=== PATIENT | female | born 1985 | race Caucasian/White ===

== ENCOUNTER 2017-06-07 21:41 | Emergency (ER) | payer OTHER ==
[~2017-06-07] VITALS: Ht 167.6 cm; Wt 88.5 kg
[2017-06-07] MEDS ORDERED: 0.9 % SODIUM CHLORIDE 10 ML DISP.SYRIN. IV PRN (22:30)
[2017-06-07] MEDS ORDERED: IV NORMAL SALINE 1,000ML 1,000 ML IV SCH (22:45)
[2017-06-07] MEDS ORDERED: ONDANSETRON PF 4 MG/2 ML VIAL. IV ONE (22:45)
[2017-06-07 22:51] LABS: BASO # 0.1 x10^3/uL (0.0-0.2); BASO % 1 % (0-3); EOS # 0.1 x10^3/uL (0.0-0.7); EOS % 1 % (0-3); HEMATOCRIT 35.9 % (36.0-47.0); HEMOGLOBIN 12.1 g/dL (12.0-15.5); LYMPH # 3.4 x10^3/uL (1.0-4.8); LYMPH % 40 % (24-48); MEAN CORPUSCULAR HEMOGLOBIN 31 pg (25-35); MEAN CORPUSCULAR HGB CONC 34 g/dL (31-37); MEAN CORPUSCULAR VOLUME 93 fL (79-100); MONO # 0.7 x10^3/uL (0.0-1.1); MONO % 8 % (0-9); NEUT # 4.5 x10^3uL (1.8-7.7); NEUT % 51 % (31-73); PLATELET COUNT 261 x10^3/uL (140-400); RED BLOOD COUNT 3.87 x10^6/uL (3.50-5.40); RED CELL DISTRIBUTION WIDTH 13.9 % (11.5-14.5); WHITE BLOOD COUNT 8.7 x10^3/uL (4.0-11.0)
[2017-06-07] MEDS ORDERED: KETOROLAC 30 MG/ML VIAL. IV ONE (23:00)
[2017-06-07 23:03] LABS: BILIRUBIN,URINE NEG (NEG); CLARITY,URINE CLEAR; COLOR,URINE STRAW; GLUCOSE,URINE NEG (NEG)
[2017-06-07 23:04] LABS: BACTERIA,URINE 0 /HPF (0-FEW); NITRITE,URINE NEG (NEG); RBC,URINE OCC /HPF (0-2); SQUAMOUS EPITHELIAL CELL,UR OCC /LPF; UROBILINOGEN,URINE 0.2 mg/dL (0.2 mg/dL); WBC,URINE OCC /HPF (0-4)
[2017-06-07 23:27] LABS: ALBUMIN 3.9 g/dL (3.4-5.0); ALBUMIN/GLOBULIN RATIO 1.1 (1.0-1.7); CALCIUM 9.1 mg/dL (8.5-10.1); CREATININE 0.9 mg/dL (0.6-1.0); GFR 73.5; POTASSIUM 3.9 mmol/L (3.5-5.1); TOTAL BILIRUBIN 0.2 mg/dL (0.2-1.0); TOTAL PROTEIN 7.5 g/dL (6.4-8.2)
--- NOTE | 2017-06-07 23:44 | RAD ---
INDICATION: Bilateral flank pain, LLQ abdominal pain
no history of kidney stones in the past
Hx of cholecystectomy, appendectomy and fallopian tubes removed COMPARISON: None. TECHNIQUE: Axial CT images were obtained through the abdomen and pelvis with intravenous contrast. One or more of the following individualized dose reduction techniques were utilized for this examination: 1. Automated exposure control; 2. Adjustment of the mA and/or kV according to patient size; 3. Use of iterative reconstruction technique. FINDINGS: Chest Base: Partially imaged without gross abnormality. Vessels: No abdominal aortic aneurysm. Liver/Biliary: Low-attenuation. Postcholecystectomy. Pancreas: No peripancreatic edema. Spleen: Normal. Kidneys/Adrenal: No hydronephrosis. Bladder: No definite adjacent inflammation. GI: No free air. No bowel dilation to suggest obstruction. 40 x 45 mm left adnexal cystic lesion. There are some laxity to the anterior abdominal wall near umbilicus. Sclerotic lesion right pelvis. Most commonly bone island unless the patient has history of neoplasm. IMPRESSION: 1. No hydronephrosis or radiopaque obstructive ureter stone. 2. Left adnexal cystic lesion. If further clarification is desired ultrasound could further evaluate. 3. Low attenuation of the liver. Nonspecific but frequently secondary to fatty infiltration. Electronically signed by: Rao Marie MD (06/07/2017 11:40 PM) [facility]
[2017-06-08] MEDS ORDERED: ORPHENADRINE CITRATE 60 MG/2 ML VIAL. IM ONE (00:15)
[2017-06-08] MEDS ORDERED: ORPHENADRINE CITRATE 60 MG/2 ML VIAL. IV ONE (00:15)
[2017-06-08] MEDS ORDERED: CYCL-331 PO (00:16)
[2017-06-08] MEDS ORDERED: TRAM-48 PO (00:16)
--- NOTE | 2017-06-08 00:16 | PHYS DOC ---
Past History Past Medical History: No Pertinent History Past Surgical History: Appendectomy, Cholecystectomy, Tubal ligation Smoking: Non-smoker Adult General Chief Complaint Chief Complaint: ABDOMINAL PAIN HPI HPI 31-year-old female patient complaining of bilateral flank pain as a constant sharp pain with radiation to bilateral lower abdomen that started today and gradually getting worse. Patient rated the pain 7/10 and states the pain getting worse with urination and movement. Patient complaining of dysuria and nausea without vomiting, fever and chills, diarrhea and constipation, vaginal bleeding or discharge. Patient denies history of kidney stone. She states her LMP was 7 days ago. Review of Systems Review of Systems Constitutional: Denies fever or chills [] Eyes: Denies change in visual acuity, redness, or eye pain [] HENT: Denies nasal congestion or sore throat [] Respiratory: Denies cough or shortness of breath [] Cardiovascular: No additional information not addressed in HPI [] GI: Reports abdominal pain, nausea, denies vomiting, bloody stools or diarrhea [ ] : reports dysuria and flank pain, denies hematuria [] Musculoskeletal: Reports back pain, denies joint pain [] Integument: Denies rash or skin lesions [] Neurologic: Denies headache, focal weakness or sensory changes [] Endocrine: Denies polyuria or polydipsia [] All other systems were reviewed and found to be within normal limits, except as documented in this note. Current Medications Current Medications Current Medications Medications (Trade) Dose Ordered Sig/Yehuda Start Time Stop Time Status Last Admin Dose Admin Ketorolac Tromethamine (Toradol) 30 mg 1X ONCE 06/07/17 23:00 06/07/17 23:01 DC 06/07/17 22:57 30 MG Ondansetron HCl (Zofran) 4 mg 1X ONCE 06/07/17 22:45 06/07/17 22:46 DC 06/07/17 22:57 4 MG Orphenadrine Citrate (Norflex) 60 mg 1X ONCE 06/08/17 00:15 06/08/17 00:16 UNV Sodium Chloride (Normal Saline Flush) 10 ml QSHIFT PRN 06/07/17 22:30 Allergies Allergies Allergies Coded Allergies Type Severity Reaction Last Updated Verified Penicillins Allergy Unknown 06/07/17 Yes Sulfa (Sulfonamide Antibiotics) Allergy Unknown 06/07/17 Yes diphenhydramine Allergy Unknown 06/07/17 Yes Physical Exam Physical Exam Constitutional: Well nourished, mild distress, non-toxic appearance, anxious. [ ] HENT: Normocephalic, atraumatic, bilateral external ears normal, oropharynx moist, no oral exudates, nose normal. [] Eyes: PERRLA, EOMI, conjunctiva normal, no discharge. [] Neck: Normal range of motion, no tenderness, supple, no stridor. [] Cardiovascular:Heart rate regular rhythm, no murmur [] Lungs & Thorax: Bilateral breath sounds clear to auscultation [] Abdomen: Bowel sounds normal, soft, no tenderness, no masses, no pulsatile masses suprapubic guarding. [] Skin: Warm, dry, no erythema, no rash. [] Back: No tenderness, no CVA tenderness, paraspinal muscle spasm. [] Extremities: No tenderness, no cyanosis, no clubbing, ROM intact, no edema. [] Neurologic: Alert and oriented X 3, normal motor function, normal sensory function, no focal deficits noted. [] Current Patient Data Lab Results Laboratory Tests Test 06/07/17 22:00 06/07/17 22:22 06/07/17 22:29 Urine Collection Type Unknown Urine Color Straw Urine Clarity Clear Urine pH 5.5 Urine Specific [place] 1.010 Urine Protein Neg (NEG-TRACE) Urine Glucose (UA) Neg mg/dL (NEG) Urine Ketones (Stick) Neg mg/dL (NEG) Urine Blood Small (NEG) Urine Nitrite Neg (NEG) Urine Bilirubin Neg (NEG) Urine Urobilinogen Dipstick 0.2 mg/dL (0.2 mg/dL) Urine Leukocyte Esterase Neg (NEG) Urine RBC Occ /HPF (0-2) Urine WBC Occ /HPF (0-4) Urine Squamous Epithelial Cells Occ /LPF Urine Bacteria 0 /HPF (0-FEW) White Blood Count 8.7 x10^3/uL (4.0-11.0) Red Blood Count 3.87 x10^6/uL (3.50-5.40) Hemoglobin 12.1 g/dL (12.0-15.5) Hematocrit 35.9 % (36.0-47.0) L Mean Corpuscular Volume 93 fL (79-100) Mean Corpuscular Hemoglobin 31 pg (25-35) Mean Corpuscular Hemoglobin Concent 34 g/dL (31-37) Red Cell Distribution Width 13.9 % (11.5-14.5) Platelet Count 261 x10^3/uL (140-400) Neutrophils (%) (Auto) 51 % (31-73) Lymphocytes (%) (Auto) 40 % (24-48) Monocytes (%) (Auto) 8 % (0-9) Eosinophils (%) (Auto) 1 % (0-3) Basophils (%) (Auto) 1 % (0-3) Neutrophils # (Auto) 4.5 x10^3uL (1.8-7.7) Lymphocytes # (Auto) 3.4 x10^3/uL (1.0-4.8) Monocytes # (Auto) 0.7 x10^3/uL (0.0-1.1) Eosinophils # (Auto) 0.1 x10^3/uL (0.0-0.7) Basophils # (Auto) 0.1 x10^3/uL (0.0-0.2) Sodium Level 142 mmol/L (136-145) Potassium Level 3.9 mmol/L (3.5-5.1) Chloride Level 104 mmol/L (98-107) Carbon Dioxide Level 27 mmol/L (21-32) Anion Gap 11 (6-14) Blood Urea Nitrogen 15 mg/dL (7-20) Creatinine 0.9 mg/dL (0.6-1.0) Estimated GFR (Cockcroft-Gault) 73.5 BUN/Creatinine Ratio 17 (6-20) Glucose Level 88 mg/dL (70-99) Calcium Level 9.1 mg/dL (8.5-10.1) Total Bilirubin 0.2 mg/dL (0.2-1.0) Aspartate Amino Transferase (AST) 37 U/L (15-37) Alanine Aminotransferase (ALT) 68 U/L (14-59) H Alkaline Phosphatase 68 U/L (46-116) Total Protein 7.5 g/dL (6.4-8.2) Albumin 3.9 g/dL (3.4-5.0) Albumin/Globulin Ratio 1.1 (1.0-1.7) Lipase 134 U/L (73-393) POC Urine HCG, Qualitative hcg negative (Negative) EKG EKG [] Radiology/Procedures Radiology/Procedures [] Course & Med Decision Making Course & Med Decision Making Pertinent Labs and Imaging studies reviewed. (See chart for details) Evaluation of patient in ER showed 31-year-old male patient with complaining of bilateral flank pain with radiation to lower abdomen and nausea. Patient had unremarkable physical exam except for lumbar spasm. Labs was unremarkable. CT abdomen and pelvis did not show acute finding except for accidental left ovarian cyst.] Patient felt better with treatment in ER. Patient psychiatric to follow-up with her [employer] regarding ovarian cyst and apply ice on her back. discharge: I've spoken with the patient and/or caregivers. I've explained the patient's condition, diagnosis and treatment plan based on information available to me at this time. I've answered the patient's and/or caregivers questions and addressed any concerns. The patient and/or caregivers have a good understanding the patient's diagnosis, condition and treatment plan as can be expected at this point. Vital signs have been stabilized. The patient's condition is stable for discharge from the emergency department. The patient will pursue further outpatient evaluation with her primary care provider or other designated consulting physician as outlined in the discharge instructions. Patient and/or caregivers are agreeable to this plan of care and follow-up instructions have been explained in detail. The patient and/or caregivers have received these instructions in written format and expressed understanding of these discharge instructions. The patient and her caregivers are aware that if any significant change in condition or worsening of symptoms should prompt him to immediately return to this of the closest emergency department. If an emergent department is not readily available I would encourage him to call 911. Nohelia Disclaimer Asiyaon Disclaimer This electronic medical record was generated, in whole or in part, using a voice recognition dictation system. Departure Departure: Impression: Primary Impression: Flank pain Additional Impressions: Muscle strain Ovarian cyst Disposition: HOME, SELF-CARE (At 0020) Condition: IMPROVED Referrals: KESHIA QUARLES DO (PCP) Patient Instructions: Flank Pain, Muscle Strain, Ovarian Cyst Additional Instructions: Drink plenty of liquids Follow-up with your primary care physician in 3-5 days Return to ER if not getting better Scripts Cyclobenzaprine Hcl (CYCLOBENZAPRINE HCL) 10 Mg Tablet 1 TAB PO TID, #21 TAB Prov: NICOLE BARBOSA MD 06/08/17 Tramadol Hcl (ULTRAM) 50 Mg Tablet 50 MG PO PRN Q6HRS Y for PAIN, #14 TAB Prov: NICOLE BARBOSA MD 06/08/17 Problem Qualifiers NICOLE BARBOSA MD Jun 08, 2017 00:16
[2017-06-08 00:45] VITALS: BP 130/88
== END 2017-06-08 00:45 | disposition home or self-care (01) ==
LOC: ER 21:41
DX: N83.202 Unspecified ovarian cyst, left side (principal); S39.012A Strain of muscle, fascia and tendon of lower back, initial encounter; Z90.49 Acquired absence of other specified parts of digestive tract; Z98.51 Tubal ligation status; Z88.0 Allergy status to penicillin; Z88.2 Allergy status to sulfonamides; Z88.8 Allergy status to other drugs, medicaments and biological substances; X58.XXXA Exposure to other specified factors, initial encounter; Y93.89 Activity, other specified; Y99.8 Other external cause status; Y92.89 Other specified places as the place of occurrence of the external cause
CPT/HCPCS: 36415; 74176; 80053; 81001; 81025; 83690; 85025; 96361; 96374; 96375; 99285; J1885; J2360; J2405; J7030

== ENCOUNTER 2017-06-11 22:35 | Emergency (ER) | payer OTHER ==
[~2017-06-11] VITALS: Ht 167.6 cm; Wt 88.5 kg
[~2017-06-11 22:35] MED LIST: CYCL-331 PO; TRAM-48 PO
--- NOTE | 2017-06-11 22:47 | PHYS DOC ---
Past History Past Medical History: No Pertinent History Past Surgical History: Appendectomy, Cholecystectomy, Tubal ligation Smoking: Non-smoker Alcohol Use: Occasionally Drug Use: None Adult General Chief Complaint Chief Complaint: ABDOMINAL PAIN HPI HPI Patient is a 31 year old female who presents with gastric pain goes into her back. She states it started Tuesday she has CT scan blood work and was given home with tramadol and Flexeril. She states is really hasn't helped. She ate 2 fig newtons and some eggs and her pain returns severely tonight. She states if she turns it makes the pain worse. She denies any fevers chills or diarrhea. She states the pain is in epigastric area. She states she's had a hysterectomy, cholecystectomy and her tubes tied. Review of Systems Review of Systems Constitutional: Denies fever or chills [] Eyes: Denies change in visual acuity, redness, or eye pain [] HENT: Denies nasal congestion or sore throat [] Respiratory: Denies cough or shortness of breath [] Cardiovascular: No additional information not addressed in HPI [] GI: Positive for abdominal pain, Deniesnausea, vomiting, bloody stools or diarrhea [] : Denies dysuria or hematuria [] Musculoskeletal: Denies back pain or joint pain [] Integument: Denies rash or skin lesions [] Neurologic: Denies headache, focal weakness or sensory changes [] Endocrine: Denies polyuria or polydipsia [] All other systems were reviewed and found to be within normal limits, except as documented in this note. Allergies Allergies Allergies Coded Allergies Type Severity Reaction Last Updated Verified Penicillins Allergy Unknown 06/07/17 Yes Sulfa (Sulfonamide Antibiotics) Allergy Unknown 06/07/17 Yes diphenhydramine Allergy Unknown 06/07/17 Yes strawberry Allergy Unknown 06/11/17 Yes Physical Exam Physical Exam Constitutional: Well developed, well nourished, no acute distress, non-toxic appearance. [] HENT: Normocephalic, atraumatic, bilateral external ears normal, oropharynx moist, no oral exudates, nose normal. [] Eyes: PERRLA, EOMI, conjunctiva normal, no discharge. [] Neck: Normal range of motion, no tenderness, supple, no stridor. [] Cardiovascular:Heart rate regular rhythm, no murmur [] Lungs & Thorax: Bilateral breath sounds clear to auscultation [] Abdomen: Bowel sounds normal, soft, tender palpation in the epigastric area, no masses, no pulsatile masses. [] Skin: Warm, dry, no erythema, no rash. [] Back: No tenderness, no CVA tenderness. [] Extremities: No tenderness, no cyanosis, no clubbing, ROM intact, no edema. [] Neurologic: Alert and oriented X 3, normal motor function, normal sensory function, no focal deficits noted. [] Psychologic: Affect normal, judgement normal, mood normal. [] EKG EKG EKG shows sinus rhythm with rate of 90 bpm without any concerning ST elevations , T-wave inversions noted in lead 3, normal axis, QTC 430 ms, as interpreted by me. Radiology/Procedures Radiology/Procedures : 1985 LOCATION: ER AGE: 31 SEX: F EXAM STATUS: REG ER ORD. PHYSICIAN: ALEX DUARTE MD REASON: abd pain to back PROCEDURE: CT ANGIO CHEST ABD PELVIS CTA of the chest, abdomen and pelvis with contrast 06/12/2017 CLINICAL HISTORY: Abdominal pain radiating to back. TECHNIQUE: After the intravenous administration of 75 cc of Omnipaque 300, contiguous, 0.625 mm axial sections were obtained through the chest, abdomen and pelvis. Multiplanar 3D MIP and volume rendered 3D reconstructed images were obtained. One or more of the following individualized dose reduction techniques were utilized for this study: 1. Automated exposure control. 2. Adjustment of the mA and/or kV according to patient size. 3. Use of iterative reconstruction technique. FINDINGS: The thoracic aorta tapers normally. No aneurysm or dissection is seen. The right subclavian artery originates as the last branch of the thoracic aortic arch. This is a normal variation. This origin is patent. The origin of the right common carotid artery, left common carotid artery and left subclavian arteries are patent. The left vertebral artery originates as a separate branch from the thoracic aortic arch between the origin of the left common carotid and left subclavian arteries. This is a normal variation. This origin is patent. The heart is normal in size. No filling defect is seen involving the visualized portions of either pulmonary artery. No acute pulmonary infiltrate is seen. No pleural effusion or pneumothorax is noted. The liver has a decreased attenuation consistent with mild fatty degeneration. The spleen, pancreas, adrenal glands and kidneys are within normal limits. Surgical clips are seen within the gallbladder fossa consistent with a cholecystectomy. No free fluid or free air is within the abdomen. There is no evidence of bowel obstruction. Air and stool is seen throughout the colon. Surgical clips are seen posterior to the cecum consistent with an appendectomy. Images through the pelvis demonstrate the urinary bladder distended with urine. A 3.8 cm rounded low-attenuation lesion is seen in the left adnexa. This likely represents a left ovarian cyst. No free fluid is seen. The abdominal aorta tapers normally. The origins of the celiac trunk, superior mesenteric artery, inferior mesenteric artery are within normal limits. 2 renal arteries are seen supplying the right kidney. There are patent. Solitary left renal artery is seen which immediately bifurcates past its origin. This is patent. The common iliac arteries and their branches are patent. No area of stenosis or occlusion is seen. Minimal S-shaped curvature of the thoracolumbar spine is seen. IMPRESSION: 1. No CT evidence of aortic dissection or aneurysm. 2. 3.8 cm probable left ovarian cyst. Electronically signed by: Paulino Duarte MD (06/12/2017 2:41 AM) [facility] DICTATED AND SIGNED BY: PAULINO DUARTE MD DATE: 06/12/17 023 CC: ALEX DUARTE MD; KESHIA QUARLES DO ~ Impressions: Abdominal pain Course & Med Decision Making Course & Med Decision Making Pertinent Labs and Imaging studies reviewed. (See chart for details) Labs do not show any acute abnormality's. She's received multiple doses of morphine to get her pain control. She's had her gallbladder and appendix removed in the past. CT angiogram chest abdomen pelvis does not show any acute abnormalities. Patient's record admission for pain control. I spoke to Dr. Smalls who feels that [facility] is better for the patient since they have GI specialist. We'll admit to [facility] since they have GI specialist. Patient is agreeable to the plan and being transferred to [facility] this time. It is speak with the hospitalist, Dr. Yeboah, regarding the patient's physical exam labs and CT scan findings. Dragon Disclaimer Dragon Disclaimer This electronic medical record was generated, in whole or in part, using a voice recognition dictation system. Departure Departure: Impression: Primary Impression: Abdominal pain Disposition: 05 XFER OTHER Condition: STABLE Referrals: KESHIA QUARLES DO (PCP) Problem Qualifiers Primary Impression: Abdominal pain Abdominal location: epigastric Qualified Codes: R10.13 - Epigastric pain ALEX DUARTE MD Jun 11, 2017 22:47
--- NOTE | 2017-06-11 23:10 | EKG ---
[address] [address] Test Date: 2017-06-11 Test Time: 23:07:06 Pat Name: JOSE JAMES Department: Room: Gender: F Hook Up Driver: PATRICK : 1985 Requested By: ALEX DUARTE Order Number: [id number] Reading MD: Elton Hercules Measurements Intervals [place] Rate: 90 P: 38 WV: 136 QRS: 18 QRSD: 72 T: 24 QT: 348 QTc: 430 Interpretive Statements SINUS RHYTHM NONSPECIFIC ST-T WAVE CHANGES. RI6.01 No previous ECG available for comparison Electronically Signed On 06-20-2017 10:42:17 ROOF FIXER by Elton Hercules
[2017-06-11] MEDS ORDERED: IV NORMAL SALINE 1,000ML 1,000 ML IV SCH (23:30)
[2017-06-11] MEDS ORDERED: LIDO:MAALOX 1:1 20 ML SINGLE DOSE PO ONE (23:30)
[2017-06-11] MEDS: MORPHINE SULFATE 2 MG/ML DISP.SYRIN. IV/SQ PRN (23:47)
[2017-06-11 23:59] LABS: BASO # 0.1 x10^3/uL (0.0-0.2); BASO % 1 % (0-3); EOS # 0.1 x10^3/uL (0.0-0.7); EOS % 1 % (0-3); HEMATOCRIT 37.6 % (36.0-47.0); HEMOGLOBIN 12.8 g/dL (12.0-15.5); LYMPH # 2.6 x10^3/uL (1.0-4.8); LYMPH % 40 % (24-48); MEAN CORPUSCULAR HEMOGLOBIN 32 pg (25-35); MEAN CORPUSCULAR HGB CONC 34 g/dL (31-37); MEAN CORPUSCULAR VOLUME 93 fL (79-100); MONO # 0.5 x10^3/uL (0.0-1.1); MONO % 9 % (0-9); NEUT # 3.1 x10^3uL (1.8-7.7); NEUT % 49 % (31-73); PLATELET COUNT 252 x10^3/uL (140-400); RED BLOOD COUNT 4.04 x10^6/uL (3.50-5.40); RED CELL DISTRIBUTION WIDTH 14.3 % (11.5-14.5); WHITE BLOOD COUNT 6.4 x10^3/uL (4.0-11.0)
[2017-06-12 00:17] LABS: BILIRUBIN,URINE NEG (NEG); CLARITY,URINE HAZY; COLOR,URINE YELLOW; GLUCOSE,URINE NEG (NEG)
[2017-06-12 00:18] LABS: BACTERIA,URINE FEW /HPF (0-FEW); NITRITE,URINE NEG (NEG); RBC,URINE RARE /HPF (0-2); SQUAMOUS EPITHELIAL CELL,UR MOD /LPF; UROBILINOGEN,URINE 0.2 mg/dL (0.2 mg/dL); WBC,URINE OCC /HPF (0-4)
[2017-06-12 00:21] LABS: BARBITURATES NEG (NEG); BENZODIAZEPINES NEG (NEG); CANNABINOIDS NEG (NEG); COCAINE NEG (NEG); METHADONE NEG (NEG); OPIATES NEG (NEG); PHENCYCLIDINE NEG (NEG)
[2017-06-12 00:23] LABS: AMPHETAMINE/METHAMPHETAMINE NEG (NEG)
[2017-06-12] MEDS ORDERED: CONTRAST GIVEN MC PRN (00:30)
[2017-06-12] MEDS ORDERED: IOHEXOL 300 MG/ML 75 ML VIAL. IV ONE (00:45)
[2017-06-12] MEDS: MORPHINE SULFATE 2 MG/ML DISP.SYRIN. IV/SQ PRN ×3 (01:10→04:26)
[2017-06-12 02:09] LABS: ALBUMIN 3.3 g/dL (3.4-5.0); ALK PHOS 63 U/L (46-116); ALT (SGPT) 67 U/L (14-59); ANION GAP 10 (6-14); AST (SGOT) 43 U/L (15-37); BLOOD UREA NITROGEN 12 mg/dL (7-20); CALCIUM 8.2 mg/dL (8.5-10.1); CARBON DIOXIDE 26 mmol/L (21-32); CHLORIDE 106 mmol/L (98-107); CREATINE KINASE 74 U/L (26-192); CREATININE 0.7 mg/dL (0.6-1.0); DIRECT BILIRUBIN 0.1 mg/dL (0.0-0.2); GFR 98.3; GLUCOSE 104 mg/dL (70-99); LIPASE 64 U/L (73-393); POTASSIUM 3.7 mmol/L (3.5-5.1); SODIUM 142 mmol/L (136-145); TOTAL BILIRUBIN 0.4 mg/dL (0.2-1.0); TOTAL PROTEIN 6.7 g/dL (6.4-8.2)
--- NOTE | 2017-06-12 02:45 | RAD ---
CTA of the chest, abdomen and pelvis with contrast 06/12/2017 CLINICAL HISTORY: Abdominal pain radiating to back. TECHNIQUE: After the intravenous administration of 75 cc of Omnipaque 300, contiguous, 0.625 mm axial sections were obtained through the chest, abdomen and pelvis. Multiplanar 3D MIP and volume rendered 3D reconstructed images were obtained. One or more of the following individualized dose reduction techniques were utilized for this study: 1. Automated exposure control. 2. Adjustment of the mA and/or kV according to patient size. 3. Use of iterative reconstruction technique. FINDINGS: The thoracic aorta tapers normally. No aneurysm or dissection is seen. The right subclavian artery originates as the last branch of the thoracic aortic arch. This is a normal variation. This origin is patent. The origin of the right common carotid artery, left common carotid artery and left subclavian arteries are patent. The left vertebral artery originates as a separate branch from the thoracic aortic arch between the origin of the left common carotid and left subclavian arteries. This is a normal variation. This origin is patent. The heart is normal in size. No filling defect is seen involving the visualized portions of either pulmonary artery. No acute pulmonary infiltrate is seen. No pleural effusion or pneumothorax is noted. The liver has a decreased attenuation consistent with mild fatty degeneration. The spleen, pancreas, adrenal glands and kidneys are within normal limits. Surgical clips are seen within the gallbladder fossa consistent with a cholecystectomy. No free fluid or free air is within the abdomen. There is no evidence of bowel obstruction. Air and stool is seen throughout the colon. Surgical clips are seen posterior to the cecum consistent with an appendectomy. Images through the pelvis demonstrate the urinary bladder distended with urine. A 3.8 cm rounded low-attenuation lesion is seen in the left adnexa. This likely represents a left ovarian cyst. No free fluid is seen. The abdominal aorta tapers normally. The origins of the celiac trunk, superior mesenteric artery, inferior mesenteric artery are within normal limits. 2 renal arteries are seen supplying the right kidney. There are patent. Solitary left renal artery is seen which immediately bifurcates past its origin. This is patent. The common iliac arteries and their branches are patent. No area of stenosis or occlusion is seen. Minimal S-shaped curvature of the thoracolumbar spine is seen. IMPRESSION: 1. No CT evidence of aortic dissection or aneurysm. 2. 3.8 cm probable left ovarian cyst. Electronically signed by: Paulino Duarte MD (06/12/2017 2:41 AM) [facility]
[2017-06-12 03:45] VITALS: BP 112/65
== END 2017-06-12 04:30 | disposition short-term general hospital (02) ==
LOC: ER 22:35
DX: R10.13 Epigastric pain (principal); Z90.49 Acquired absence of other specified parts of digestive tract; Z98.51 Tubal ligation status; Z88.0 Allergy status to penicillin; Z88.2 Allergy status to sulfonamides; Z91.018 Allergy to other foods; Z88.8 Allergy status to other drugs, medicaments and biological substances
CPT/HCPCS: 36415; 71275; 74174; 80048; 80076; 80307; 81001; 82553; 83605; 83690; 83735; 83880; 84484; 85025; 85610; 85730; 93005; 96361; 96374; 96376; 99285; J2270; Q9967; 96360; G0479; J7030

== ENCOUNTER 2017-07-05 06:21 | Emergency (ER) | payer OTHER ==
[~2017-07-05] VITALS: Ht 167.6 cm; Wt 86.5 kg
[2017-07-05] MEDS ORDERED: prilosec (06:39)
[2017-07-05] MEDS ORDERED: levothyroxine (06:39)
[2017-07-05] MEDS ORDERED: 0.9 % SODIUM CHLORIDE 10 ML DISP.SYRIN. IV PRN (07:00)
[2017-07-05] MEDS: IPRATRPIUM/ALBUTEROL 0.5/2.5MG 3 ML NEBU. NEB ONE (07:22)
[2017-07-05] MEDS: IV NORMAL SALINE 1,000ML 1,000 ML IV SCH (07:39)
[2017-07-05] MEDS: METOCLOPRAMIDE HCL 10 MG/2 ML VIAL. IV ONE (07:39)
[2017-07-05 07:44] LABS: BASO # 0.1 x10^3/uL (0.0-0.2); BASO % 0 % (0-3); EOS % 0 % (0-3); HEMATOCRIT 40.3 % (36.0-47.0); HEMOGLOBIN 13.4 g/dL (12.0-15.5); LYMPH # 1.6 x10^3/uL (1.0-4.8); LYMPH % 11 % (24-48); MEAN CORPUSCULAR HEMOGLOBIN 31 pg (25-35); MEAN CORPUSCULAR HGB CONC 33 g/dL (31-37); MEAN CORPUSCULAR VOLUME 93 fL (79-100); MONO # 1.1 x10^3/uL (0.0-1.1); MONO % 7 % (0-9); NEUT % 81 % (31-73); PLATELET COUNT 287 x10^3/uL (140-400); RED BLOOD COUNT 4.33 x10^6/uL (3.50-5.40); RED CELL DISTRIBUTION WIDTH 13.4 % (11.5-14.5); WHITE BLOOD COUNT 14.8 x10^3/uL (4.0-11.0)
[2017-07-05 07:59] LABS: ALBUMIN 4.3 g/dL (3.4-5.0); ALBUMIN/GLOBULIN RATIO 1.1 (1.0-1.7); CALCIUM 9.5 mg/dL (8.5-10.1); CREATININE 0.8 mg/dL (0.6-1.0); GFR 84.2; POTASSIUM 4.3 mmol/L (3.5-5.1); TOTAL BILIRUBIN 0.2 mg/dL (0.2-1.0); TOTAL PROTEIN 8.1 g/dL (6.4-8.2)
[2017-07-05 08:02] LABS: INFLUENZA A PATIENT NEGATIVE (NEGATIVE); INFLUENZA B PATIENT NEGATIVE (NEGATIVE)
[2017-07-05 08:10] LABS: AMORPHOUS SEDIMENT,UR PRESENT /HPF; BACTERIA,URINE FEW /HPF (0-FEW); BILIRUBIN,URINE NEG (NEG); CLARITY,URINE CLOUDY; COLOR,URINE YELLOW; GLUCOSE,URINE NEG (NEG); NITRITE,URINE NEG (NEG); RBC,URINE RARE /HPF (0-2); SQUAMOUS EPITHELIAL CELL,UR MOD /LPF; UROBILINOGEN,URINE 0.2 mg/dL (0.2 mg/dL); WBC,URINE 0 /HPF (0-4)
[2017-07-05] MEDS ORDERED: KETOROLAC 30 MG/ML VIAL. ONE (08:25)
--- NOTE | 2017-07-05 08:25 | PHYS DOC ---
Past History Past Medical History: Depression, Gallstones, Hypothyroid, Ovarian Cyst, UTI, Other Past Surgical History: Appendectomy, Cholecystectomy, Tubal ligation, Other Smoking: Non-smoker Alcohol Use: Occasionally Drug Use: None Adult General Chief Complaint Chief Complaint: NAUSEA/VOMITING/DIARRHEA HPI HPI 31-year-old female patient with history of gastroparesis and 1-2 episodes of vomiting daily complaining of multiple episodes of vomiting and diarrhea since last night and states she had more than 10 episodes of nonbloody vomiting and the same number of diarrhea since last night. Patient complaining of cramping epigastric pain during episodes of vomiting without constant abdominal pain. Patient complaining of chills during vomiting. Patient states she started to have cough and nasal congestion since this morning. Patient denies sick contacts , urinary symptoms, . Patient had history of cholecystectomy, appendectomy and tubal ligation. Review of Systems Review of Systems Constitutional: Denies fever , reports chills [] Eyes: Denies change in visual acuity, redness, or eye pain [] HENT: Denies nasal congestion or sore throat [] Respiratory: Denies cough or shortness of breath [] Cardiovascular: No additional information not addressed in HPI [] GI: Reports abdominal pain, nausea, vomiting, diarrhea [] : Denies dysuria or hematuria [] Musculoskeletal: Denies back pain or joint pain [] Integument: Denies rash or skin lesions [] Neurologic: Denies headache, focal weakness or sensory changes [] Endocrine: Denies polyuria or polydipsia [] All other systems were reviewed and found to be within normal limits, except as documented in this note. Current Medications Current Medications Current Medications Medications (Trade) Dose Ordered Sig/Yehuda Start Time Stop Time Status Last Admin Dose Admin Albuterol/ Ipratropium (Duoneb) 3 ml 1X ONCE 07/05/17 07:15 07/05/17 07:16 DC 07/05/17 07:22 3 ML Ketorolac Tromethamine (Toradol) 30 mg 1X ONCE 07/05/17 08:30 07/05/17 08:31 UNV Metoclopramide HCl (Reglan Vial) 10 mg 1X ONCE 07/05/17 07:15 07/05/17 07:16 DC 07/05/17 07:39 10 MG Sodium Chloride 1,000 ml @ 1,000 mls/hr 1X ONCE 07/05/17 08:30 07/05/17 09:29 UNV Sodium Chloride (Normal Saline Flush) 10 ml QSHIFT PRN 07/05/17 07:00 Allergies Allergies Allergies Coded Allergies Type Severity Reaction Last Updated Verified Penicillins Allergy Unknown 07/05/17 Yes Sulfa (Sulfonamide Antibiotics) Allergy Unknown 07/05/17 Yes diphenhydramine Allergy Unknown 07/05/17 Yes metronidazole Allergy Unknown 07/05/17 Yes nitrofurantoin Allergy Unknown 07/05/17 Yes strawberry Allergy Unknown 07/05/17 Yes Physical Exam Physical Exam Constitutional: Well developed, well nourished,mild distress, non-toxic appearance. [] HENT: Normocephalic, atraumatic, bilateral external ears normal, oropharynx dry , no oral exudates, nose normal. [] Eyes: PERRLA, EOMI, conjunctiva normal, no discharge. [] Neck: Normal range of motion, no tenderness, supple, no stridor. [] Cardiovascular:Tachycardia, no murmur [] Lungs & Thorax: Bilateral breath sounds clear to auscultation [] Abdomen: Bowel sounds normal, soft, no tenderness, no masses, no pulsatile masses. [] Skin: Warm, dry, no erythema, no rash. [] Back: No tenderness, no CVA tenderness. [] Extremities: No tenderness, no cyanosis, no clubbing, ROM intact, no edema. [] Neurologic: Alert and oriented X 3, normal motor function, normal sensory function, no focal deficits noted. [] Psychologic: Affect normal, judgement normal, mood normal. [] Current Patient Data Vital Signs Vital Signs Date Time Temp Pulse Resp B/P (MAP) Pulse Ox O2 Delivery O2 Flow Rate FiO2 07/05/17 07:22 97 Room Air 07/05/17 06:25 97.4 108 20 Lab Results Laboratory Tests Test 07/05/17 07:20 07/05/17 07:30 Urine Collection Type Unknown Urine Color Yellow Urine Clarity Cloudy Urine pH 5.0 Urine Specific Lenora >=1.030 Urine Protein Trace (NEG-TRACE) Urine Glucose (UA) Neg mg/dL (NEG) Urine Ketones (Stick) 15 mg/dL (NEG) Urine Blood Small (NEG) Urine Nitrite Neg (NEG) Urine Bilirubin Neg (NEG) Urine Urobilinogen Dipstick 0.2 mg/dL (0.2 mg/dL) Urine Leukocyte Esterase Neg (NEG) Urine RBC Rare /HPF (0-2) Urine WBC 0 /HPF (0-4) Urine Squamous Epithelial Cells Mod /LPF Urine Amorphous Sediment Present /HPF Urine Bacteria Few /HPF (0-FEW) Urine Mucus Marked /LPF White Blood Count 14.8 x10^3/uL (4.0-11.0) H Red Blood Count 4.33 x10^6/uL (3.50-5.40) Hemoglobin 13.4 g/dL (12.0-15.5) Hematocrit 40.3 % (36.0-47.0) Mean Corpuscular Volume 93 fL (79-100) Mean Corpuscular Hemoglobin 31 pg (25-35) Mean Corpuscular Hemoglobin Concent 33 g/dL (31-37) Red Cell Distribution Width 13.4 % (11.5-14.5) Platelet Count 287 x10^3/uL (140-400) Neutrophils (%) (Auto) 81 % (31-73) H Lymphocytes (%) (Auto) 11 % (24-48) L Monocytes (%) (Auto) 7 % (0-9) Eosinophils (%) (Auto) 0 % (0-3) Basophils (%) (Auto) 0 % (0-3) Neutrophils # (Auto) 12.0 x10^3uL (1.8-7.7) H Lymphocytes # (Auto) 1.6 x10^3/uL (1.0-4.8) Monocytes # (Auto) 1.1 x10^3/uL (0.0-1.1) Eosinophils # (Auto) 0.0 x10^3/uL (0.0-0.7) Basophils # (Auto) 0.1 x10^3/uL (0.0-0.2) Sodium Level 140 mmol/L (136-145) Potassium Level 4.3 mmol/L (3.5-5.1) Chloride Level 104 mmol/L (98-107) Carbon Dioxide Level 23 mmol/L (21-32) Anion Gap 13 (6-14) Blood Urea Nitrogen 14 mg/dL (7-20) Creatinine 0.8 mg/dL (0.6-1.0) Estimated GFR (Cockcroft-Gault) 84.2 BUN/Creatinine Ratio 18 (6-20) Glucose Level 96 mg/dL (70-99) Calcium Level 9.5 mg/dL (8.5-10.1) Total Bilirubin 0.2 mg/dL (0.2-1.0) Aspartate Amino Transferase (AST) 84 U/L (15-37) H Alanine Aminotransferase (ALT) 120 U/L (14-59) H Alkaline Phosphatase 93 U/L (46-116) Total Protein 8.1 g/dL (6.4-8.2) Albumin 4.3 g/dL (3.4-5.0) Albumin/Globulin Ratio 1.1 (1.0-1.7) Lipase 69 U/L (73-393) L Influenza Type A (Rapid) Negative (NEGATIVE) Influenza Type B (Rapid) Negative (NEGATIVE) EKG EKG [] Radiology/Procedures Radiology/Procedures [] Course & Med Decision Making Course & Med Decision Making Pertinent Labs reviewed. (See chart for details) Evaluation of patient in ER showed 31-year-old female patient with complaining of nausea and vomiting and diarrhea and history of gastroparesis. Patient had leukocytosis without abdominal tenderness. Patient had history of cholecystectomy and appendectomy. Patient treated with IV fluid and felt better. Patient had tachycardia and states she has history of tachycardic without feeling of palpitation. Patient tolerated oral intake. Plan discharge patient home with diagnosis of acute gastroenteritis. discharge: I've spoken with the patient and/or caregivers. I've explained the patient's condition, diagnosis and treatment plan based on information available to me at this time. I've answered the patient's and/or caregivers questions and addressed any concerns. The patient and/or caregivers have a good understanding the patient's diagnosis, condition and treatment plan as can be expected at this point. Vital signs have been stabilized. The patient's condition is stable for discharge from the emergency department. The patient will pursue further outpatient evaluation with her primary care provider or other designated consulting physician as outlined in the discharge instructions. Patient and/or caregivers are agreeable to this plan of care and follow-up instructions have been explained in detail. The patient and/or caregivers have received these instructions in written format and expressed understanding of these discharge instructions. The patient and her caregivers are aware that if any significant change in condition or worsening of symptoms should prompt him to immediately return to this of the closest emergency department. If an emergent department is not readily available I would encourage him to call 911. Nohelia Disclaimer Dragon Disclaimer This electronic medical record was generated, in whole or in part, using a voice recognition dictation system. Departure Departure: Impression: Primary Impression: Acute gastroenteritis Additional Impressions: Viral upper respiratory infection Tachycardia Disposition: HOME, SELF-CARE Condition: IMPROVED Referrals: KESHIA QUARLES DO (PCP) Patient Instructions: Upper Respiratory Infection, Adult, Viral Gastroenteritis Additional Instructions: Drink plenty of liquids Follow-up with your primary care physician in 3-5 days Return to ER if not getting better Scripts Benzonatate (TESSALON PERLE) 100 Mg Capsule 1 CAP PO TID, #21 CAP Prov: NICOLE BARBOSA MD 07/05/17 Metoclopramide Hcl (REGLAN) 10 Mg Tablet 1 TAB PO TID Y for NAUSEA, #30 TAB Prov: NICOLE BARBOSA MD 07/05/17 Problem Qualifiers NICOLE BARBOSA MD Jul 05, 2017 08:25
[2017-07-05] MEDS: KETOROLAC 30 MG/ML VIAL. IV ONE (08:28)
[2017-07-05] MEDS: IV NORMAL SALINE 1,000ML 1,000 ML IV ONE (08:28)
[2017-07-05] MEDS ORDERED: BENZ100C PO (08:51)
[2017-07-05] MEDS ORDERED: METO10TA81 PO (08:51)
[2017-07-05 08:56] VITALS: BP 112/62
== END 2017-07-05 09:12 | disposition home or self-care (01) ==
LOC: ER 06:21
DX: A08.4 Viral intestinal infection, unspecified (principal); J06.9 Acute upper respiratory infection, unspecified; B97.89 Other viral agents as the cause of diseases classified elsewhere; R00.0 Tachycardia, unspecified; E03.9 Hypothyroidism, unspecified; Z87.440 Personal history of urinary (tract) infections; Z88.0 Allergy status to penicillin; Z88.2 Allergy status to sulfonamides; Z88.8 Allergy status to other drugs, medicaments and biological substances; Z91.018 Allergy to other foods
CPT/HCPCS: 36415; 80053; 81001; 83690; 85025; 87804; 94640; 96361; 96374; 96375; 99284; J1885; J2765; J7620; J7030

== ENCOUNTER 2017-08-01 08:17 | Observation (INO) | payer OTHER ==
[~2017-08-01] VITALS: Ht 167.6 cm; Wt 85.3 kg
[~2017-08-01 08:17] MED LIST changes: +BENZ100C PO; +METO10TA81 PO; +levothyroxine; +prilosec
[2017-08-01] MEDS ORDERED: 0.9 % SODIUM CHLORIDE 10 ML DISP.SYRIN. IV PRN (08:45)
[2017-08-01 08:55] LABS: BASO # 0.1 x10^3/uL (0.0-0.2); BASO % 1 % (0-3); EOS # 0.1 x10^3/uL (0.0-0.7); EOS % 1 % (0-3); HEMATOCRIT 42.5 % (36.0-47.0); HEMOGLOBIN 13.9 g/dL (12.0-15.5); LYMPH # 2.6 x10^3/uL (1.0-4.8); LYMPH % 23 % (24-48); MEAN CORPUSCULAR HEMOGLOBIN 31 pg (25-35); MEAN CORPUSCULAR HGB CONC 33 g/dL (31-37); MEAN CORPUSCULAR VOLUME 93 fL (79-100); MONO # 0.8 x10^3/uL (0.0-1.1); MONO % 8 % (0-9); NEUT # 7.5 x10^3uL (1.8-7.7); NEUT % 68 % (31-73); PLATELET COUNT 272 x10^3/uL (140-400); RED BLOOD COUNT 4.58 x10^6/uL (3.50-5.40); RED CELL DISTRIBUTION WIDTH 13.4 % (11.5-14.5)
[2017-08-01] MEDS ORDERED: IV NORMAL SALINE 1,000ML 1,000 ML IV SCH ×2 (09:00→11:00)
[2017-08-01] MEDS ORDERED: KETOROLAC 30 MG/ML VIAL. IV ONE (09:00)
[2017-08-01] MEDS ORDERED: ONDANSETRON PF 4 MG/2 ML VIAL. IV ONE (09:00)
[2017-08-01 09:05] LABS: PREG TEST PT QUAL NEGATIVE (NEG)
--- NOTE | 2017-08-01 09:05 | PHYS DOC ---
Past History Past Medical History: Depression, Gallstones, Hypothyroid, Ovarian Cyst, UTI, Other Additional Past Medical Histor: gastroparesis Past Surgical History: Appendectomy, Cholecystectomy, Tubal ligation, Other Smoking: Non-smoker Alcohol Use: Occasionally Drug Use: None Adult General Chief Complaint Chief Complaint: ABDOMINAL PAIN HPI HPI 31-year-old female patient with history of gastroparesis and depression with chronic constipation states she did not have a good bowel movement for at least 10 days. Patient states she did take MiraLAX and bisacodyl and enema without having a good bowel movement and complaining of left lower quadrant cramping abdominal pain that getting more tense and constant for the last few days. Patient complaining of more than 10 episodes of point respiratory of vomiting since this morning and increasing abdominal pain and rated her pain 9/10. Patient complaining of generalized weakness and dizziness without fever and chills, urinary symptom, vaginal bleeding or discharge. Patient states she had the same problem last year and diagnosed with ischemic colitis. Patient states her LMP was July 13 and denies because she had tubal ligation and fallopian tube removal. Review of Systems Review of Systems Constitutional: Denies fever or chills [] Eyes: Denies change in visual acuity, redness, or eye pain [] HENT: Denies nasal congestion or sore throat [] Respiratory: Denies cough or shortness of breath [] Cardiovascular: No additional information not addressed in HPI [] GI: Reports abdominal pain, nausea, vomiting, constipation, denies bloody stools or diarrhea [] : Denies dysuria or hematuria [] Musculoskeletal: Denies back pain or joint pain [] Integument: Denies rash or skin lesions [] Neurologic: Denies headache, focal weakness or sensory changes [] Endocrine: Denies polyuria or polydipsia [] All other systems were reviewed and found to be within normal limits, except as documented in this note. Current Medications Current Medications Current Medications Medications (Trade) Dose Ordered Sig/Yehuda Start Time Stop Time Status Last Admin Dose Admin Ketorolac Tromethamine (Toradol) 30 mg 1X ONCE 08/01/17 09:00 08/01/17 09:01 Ondansetron HCl (Zofran) 4 mg 1X ONCE 08/01/17 09:00 08/01/17 09:01 08/01/17 08:50 4 MG Sodium Chloride (Normal Saline Flush) 10 ml QSHIFT PRN 08/01/17 08:45 Allergies Allergies Allergies Coded Allergies Type Severity Reaction Last Updated Verified Penicillins Allergy Unknown 07/05/17 Yes Sulfa (Sulfonamide Antibiotics) Allergy Unknown 07/05/17 Yes diphenhydramine Allergy Unknown 07/05/17 Yes metronidazole Allergy Unknown 07/05/17 Yes nitrofurantoin Allergy Unknown 07/05/17 Yes strawberry Allergy Unknown 07/05/17 Yes Physical Exam Physical Exam Constitutional: Well developed, well nourished, moderate distress, non-toxic appearance, anxious. [] HENT: Normocephalic, atraumatic, bilateral external ears normal, oropharynx moist, no oral exudates, nose normal. [] Eyes: PERRLA, EOMI, conjunctiva normal, no discharge. [] Neck: Normal range of motion, no tenderness, supple, no stridor. [] Cardiovascular:Heart rate regular rhythm, no murmur [] Lungs & Thorax: Bilateral breath sounds clear to auscultation [] Abdomen: Bowel sounds normal, soft, no tenderness, no masses, no pulsatile masses, left lower quadrant and guarding, rectal exam was performed with present of leather tooler in the room and showed small amount of liquid stool. [] Skin: Warm, dry, no erythema, no rash. [] Back: No tenderness, no CVA tenderness. [] Extremities: No tenderness, no cyanosis, no clubbing, ROM intact, no edema. [] Neurologic: Alert and oriented X 3, normal motor function, normal sensory function, no focal deficits noted. [] Psychologic: Anxious, judgement normal, mood normal. [] Current Patient Data Vital Signs Vital Signs Date Time Temp Pulse Resp B/P (MAP) Pulse Ox O2 Delivery O2 Flow Rate FiO2 08/01/17 08:17 98.3 74 20 98 Room Air EKG EKG [] Radiology/Procedures Radiology/Procedures [ [address] [address] IMAGING REPORT Signed PATIENT: JOSE JAMES ACCOUNT: [id number] : 1985 LOCATION: ER AGE: 31 SEX: F EXAM STATUS: REG ER ORD. PHYSICIAN: NICOLE BARBOSA MD REASON: abdominal pain and nausea and vomiting PROCEDURE: CT ABD PELV W/ IV CONTRST ONLY Indication: Constipation, abdominal pain with nausea and vomiting for one week. Technique: CT abdomen and pelvis with 75 mL of Omnipaque 300 with multiplanar reformats. Comparison: 06/12/2017 Findings: Heart is normal in size. No pericardial or pleural effusion. Clear lung bases. Hepatic steatosis without focal hepatic lesion. Status post cholecystectomy. Spleen is normal in size without focal lesion. Pancreas show no focal lesion. No definite pancreatic fluid collection or inflammatory changes. No adrenal nodularity or mass lesion. No hydronephrosis or nephrolithiasis. No retroperitoneal or pelvic adenopathy. There is diffuse circumferential wall thickening with submucosal edema and pericolonic inflammatory changes from the level of splenic flexure to proximal sigmoid colon. No bowel obstruction. Urinary bladder within normal limits. Anteverted uterus. No ascites or free pelvic fluid. Bilateral ovaries are visualized and are within normal limits. No suspicious bony lesion. Impression: 1. Long segment colitis from splenic flexure to proximal sigmoid colon which may be infectious, ischemic or inflammatory. 2. Hepatic steatosis. PQRS Compliance Statement: One or more of the following individualized dose reduction techniques were utilized for this examination: 1. Automated exposure control 2. Adjustment of the mA and/or kV according to patient size 3. Use of iterative reconstruction technique DICTATED AND SIGNED BY: LISSETT CHILDS DO DATE: 08/01/17 1015 CC: NICOLE BARBOSA MD; KESHIA QUARLES DO ~] Course & Med Decision Making Course & Med Decision Making Pertinent Labs and Imaging studies reviewed. (See chart for details) Evaluation of patient in ER showed 4-year-old female patient with complaining of constipation for 10 days and nausea and vomiting and increasing abdominal pain since this morning. Patient had moderate distress of pain and had active vomiting in ER. Patient stated with IV fluid, Zofran, Reglan, Toradol and fentanyl and felt better. Patient was not able to tolerate oral contrast. Patient had a large bowel movement in ER. CBC and CMP and UA was unremarkable. CT of abdomen and pelvis with IV contrast showed left colitis. Dr. Smalls was informed at 1043 and agreed with plan of admission. Patient informed about plan of care. [] Dragon Disclaimer Dragon Disclaimer This electronic medical record was generated, in whole or in part, using a voice recognition dictation system. Departure Departure: Impression: Primary Impression: Colitis Additional Impressions: Nausea and vomiting Left lower quadrant pain Disposition: 09 ADMITTED INPATIENT (At 1045) Admitting Physician: Daquan Smalls Condition: IMPROVED Referrals: KESHIA QUARLES DO (PCP) Problem Qualifiers NICOLE BARBOSA MD Aug 01, 2017 09:05
[2017-08-01] MEDS ORDERED: IOHEXOL 240 MG/ML 50ML VIAL. ONE (09:08)
[2017-08-01 09:09] LABS: ALBUMIN/GLOBULIN RATIO 1.1 (1.0-1.7); CALCIUM 9.7 mg/dL (8.5-10.1); CREATININE 0.8 mg/dL (0.6-1.0); GFR 84.2; TOTAL BILIRUBIN 0.2 mg/dL (0.2-1.0); TOTAL PROTEIN 7.8 g/dL (6.4-8.2)
[2017-08-01 09:10] LABS: POTASSIUM 3.6 mmol/L (3.5-5.1)
[2017-08-01] MEDS ORDERED: IOHEXOL 300 MG/ML 75 ML VIAL. IV ONE (09:15)
[2017-08-01] MEDS ORDERED: METOCLOPRAMIDE HCL 10 MG/2 ML VIAL. IV ONE (09:30)
--- NOTE | 2017-08-01 10:24 | RAD ---
Indication: Constipation, abdominal pain with nausea and vomiting for one week. Technique: CT abdomen and pelvis with 75 mL of Omnipaque 300 with multiplanar reformats. Comparison: 06/12/2017 Findings: Heart is normal in size. No pericardial or pleural effusion. Clear lung bases. Hepatic steatosis without focal hepatic lesion. Status post cholecystectomy. Spleen is normal in size without focal lesion. Pancreas show no focal lesion. No definite pancreatic fluid collection or inflammatory changes. No adrenal nodularity or mass lesion. No hydronephrosis or nephrolithiasis. No retroperitoneal or pelvic adenopathy. There is diffuse circumferential wall thickening with submucosal edema and pericolonic inflammatory changes from the level of splenic flexure to proximal sigmoid colon. No bowel obstruction. Urinary bladder within normal limits. Anteverted uterus. No ascites or free pelvic fluid. Bilateral ovaries are visualized and are within normal limits. No suspicious bony lesion. Impression: 1. Long segment colitis from splenic flexure to proximal sigmoid colon which may be infectious, ischemic or inflammatory. 2. Hepatic steatosis. PQRS Compliance Statement: One or more of the following individualized dose reduction techniques were utilized for this examination: 1. Automated exposure control 2. Adjustment of the mA and/or kV according to patient size 3. Use of iterative reconstruction technique
[2017-08-01 10:57] LABS: BARBITURATES NEG (NEG); BENZODIAZEPINES NEG (NEG); CANNABINOIDS NEG (NEG); COCAINE NEG (NEG); METHADONE NEG (NEG); OPIATES NEG (NEG); PHENCYCLIDINE NEG (NEG)
[2017-08-01 10:58] LABS: AMPHETAMINE/METHAMPHETAMINE NEG (NEG)
[2017-08-01] MEDS ORDERED: ONDANSETRON PF 4 MG/2 ML VIAL. IV PRN (11:00)
[2017-08-01 11:08] LABS: BACTERIA,URINE 0 /HPF (0-FEW); BILIRUBIN,URINE NEG (NEG); CLARITY,URINE CLEAR; COLOR,URINE AMBER; GLUCOSE,URINE NEG (NEG); NITRITE,URINE NEG (NEG); RBC,URINE 0 /HPF (0-2); SQUAMOUS EPITHELIAL CELL,UR OCC /LPF; UROBILINOGEN,URINE 0.2 mg/dL (0.2 mg/dL); WBC,URINE 0 /HPF (0-4)
[2017-08-01 12:34] VITALS: BP 109/74
[2017-08-01] MEDS ORDERED: ONDA8TAB12 PO (14:07)
[2017-08-01] MEDS ORDERED: TRAZ-90 PO (14:07)
[2017-08-01] MEDS ORDERED: LEVO25TA4 PO (14:07)
[2017-08-01] MEDS ORDERED: MORPHINE SULFATE 4 MG/ML DISP.SYRIN. IV PRN (14:30)
[2017-08-01] MEDS ORDERED: MERO1PIG IV (14:47)
[2017-08-01 15:15] VITALS: BP 103/58
--- NOTE | 2017-08-01 17:09 | SSS ---
ADMIT DATE: 08/01/2017 HISTORY OF PRESENT ILLNESS: This is a 31-year-old female patient who came to the Emergency Room complaining of constipation and abdominal pain. She apparently has been taking MiraLax, bisacodyl enemas without having a good bowel movement, complaining of left lower quadrant cramping abdominal pain that is getting more intense and constant for the last few days. She also complained of more than 10 episodes of vomiting since this morning with increasing abdominal pain that she rated as 9/10. She also complained of generalized weakness, dizziness without fever, chills, urinary symptoms, vaginal bleeding or discharge. She apparently had had similar problem last year. Her last menstrual period was 07/13/2017, and denied any as she has tubal ligation and fallopian tube removal. PAST MEDICAL HISTORY: Significant for depression, cholelithiasis, hypothyroidism, urinary tract infection and previous episode of colitis and gastroparesis. PAST SURGICAL HISTORY: Significant for cholecystectomy and tubal ligation as well as appendectomy. FAMILY HISTORY: Significant for high cholesterol, hypertension. SOCIAL HISTORY: She does not smoke, drink alcohol, or use recreational drugs. ALLERGIES: She is allergic to PENICILLIN, SULFA, DIPHENHYDRAMINE, FLAGYL, NITROFURANTOIN AND STRAWBERRY. MEDICATIONS: She is currently on following medications; she is on trazodone 100 mg at bedtime, ondansetron 8 mg every 8 hours, metoclopramide 10 mg 3 times a day and levothyroxine sodium 25 mcg once a day. REVIEW OF SYSTEMS: As per history of present illness. PHYSICAL EXAMINATION: GENERAL: On arrival to the Emergency Room, she looked well and was clearly, in no apparent respiratory distress, pale, but no jaundice, cyanosis, or thyromegaly. No jugular distension. No lower limb edema. VITAL SIGNS: Her heart rate was 74, blood pressure was 101/73, temperature was 98.3, respiratory rate 20, and oxygen saturation was 98% on room air. HEENT: Showed normocephalic, atraumatic. NECK: Supple. HEART: Showed normal first and second sounds. No gallop, rub or murmur. CHEST: Clear to auscultation. No crepitation or rhonchi. ABDOMEN: Distended, soft with tenderness, mostly in the left lower quadrant. There is no guarding or rigidity. No organomegaly. All hernial orifices intact. Bowel sounds normal. NEUROLOGIC: She is awake, alert, responding appropriately. Cranial nerves intact. EXTREMITIES: She moves extremities without difficulty. She ambulates without assistance or assistive devices. LABORATORY DATA: On arrival to the Emergency Room showed that her white cell count was 11,000, hemoglobin 13.9, hematocrit 42, MCV 93 and platelet count 272,000 with a manual differential showed 68% polymorphs, 23% lymphocytes, 8% monocytes. Her chemistry showed that her serum sodium was 143, potassium 3.6, chloride 105, bicarbonate 24, anion gap of 14, BUN 15, creatinine 0.8, estimated GFR was 84 mL per minute. Her glucose was 115, calcium was 9.7. Total bilirubin 0.2. AST, ALT slightly elevated. Alkaline phosphatase normal. Total protein was 7.8, albumin was 4. Serum lipase was 75. Her serum test was negative. Urinalysis was essentially unremarkable and toxic screen was negative. She did have a CT scan of the abdomen and pelvis with the IV contrast and this showed that the heart size is normal, no pericardial or pleural effusion, clear lung bases, hepatic steatosis without focal hepatic lesions. She is status post cholecystectomy. Spleen is normal in size without focal lesion. Pancreas shows no focal lesions, no definite pancreatic fluid collection or inflammatory changes. No adrenal nodularity or mass lesion. No hydronephrosis or nephrolithiasis. No retroperitoneal or pelvic adenopathy. There is diffuse circumferential wall thickening with submucosal edema and pericolonic inflammatory changes from the level of splenic flexure to the proximal sigmoid colon. There is no evidence of bowel obstruction. Urinary bladder is within normal limits, anteverted uterus. No ascites or free pelvic fluid. She has bilateral ovaries, are visualized and are within normal limits. No suspicious bony lesions. ASSESSMENT AND PLAN: The patient has long segment colitis from splenic flexure to the proximal sigmoid colon ____ which may be infectious, ischemic or inflammatory. She has also hepatic steatosis. As the patient is out of network, we contacted the transfer center at [facility] who kindly accepted her and she will be transferred as soon as a bed becomes available with final discharge diagnoses, acute colitis, it could be ischemic, inflammatory or infectious; hypothyroidism; gastroparesis; and gastroesophageal reflux disease. SHIELA CARR MD DR: JULIÁN/veda JOB#: [id number] / [id number]
== END 2017-08-01 16:15 | disposition short-term general hospital (02) ==
LOC: ER 08:17 → 1 SOUTH 10:47 → INTOOBSV 10:47
PROVIDERS: ADMIT Internal Medicine; ATTEND Internal Medicine
DX: K52.9 Noninfective gastroenteritis and colitis, unspecified (principal); K31.84 Gastroparesis; K21.9 Gastro-esophageal reflux disease without esophagitis; K76.0 Fatty (change of) liver, not elsewhere classified; E03.9 Hypothyroidism, unspecified; F32.9 Major depressive disorder, single episode, unspecified; Z82.49 Family history of ischemic heart disease and other diseases of the circulatory system; Z90.49 Acquired absence of other specified parts of digestive tract
CPT/HCPCS: 36415; 74177; 80053; 80307; 81001; 83690; 84703; 85025; 96361; 96374; 96375; 96376; 99285; G0378; J1885; J2270; J2405; J2765; J3010; Q9967; G0379; G0479; J7030

== ENCOUNTER 2017-09-08 14:36 | Emergency (ER) | payer OTHER ==
[~2017-09-08] VITALS: Ht 167.6 cm; Wt 86.2 kg
[~2017-09-08 14:36] MED LIST changes: +LEVO25TA4 PO; +MERO1PIG IV; +ONDA8TAB12 PO; +TRAZ-90 PO
--- NOTE | 2017-09-08 15:56 | EKG ---
[address] [address] Test Date: 2017-09-08 Test Time: 15:02:33 Pat Name: JOSE JAMES Department: Room: Gender: F Rail Switchman: STACEY : 1985 Requested By: NICOLE BARBOSA Order Number: [id number] Reading MD: Saw Bravo MD Measurements Intervals [place] Rate: 74 P: 42 [place]: 144 QRS: 26 QRSD: 70 T: 24 QT: 390 QTc: 438 Interpretive Statements SINUS RHYTHM Electronically Signed On 09-12-2017 13:36:45 CDT by Saw Bravo MD
[2017-09-08 16:17] LABS: BILIRUBIN,URINE NEG (NEG); CLARITY,URINE CLEAR; COLOR,URINE STRAW; GLUCOSE,URINE NEG (NEG)
[2017-09-08 16:18] LABS: BACTERIA,URINE FEW /HPF (0-FEW); NITRITE,URINE NEG (NEG); RBC,URINE 0 /HPF (0-2); SQUAMOUS EPITHELIAL CELL,UR MANY /LPF; UROBILINOGEN,URINE 0.2 mg/dL (0.2 mg/dL)
--- NOTE | 2017-09-08 17:01 | PHYS DOC ---
Past History Past Medical History: Depression, Gallstones, Hypothyroid, Ovarian Cyst, UTI, Other Additional Past Medical Histor: gastroparesis Past Surgical History: Appendectomy, Cholecystectomy, Hysterectomy, Tubal ligation, Other Smoking: Non-smoker Alcohol Use: Occasionally Drug Use: None Adult General Chief Complaint Chief Complaint: DIZZY/LIGHT HEADED HPI HPI 32-year-old female patient brought in by EMS because of dizziness. Patient states she had laparoscopic hysterectomy last week and discharged from Hospital one week ago and had uneventful postoperative time but this morning felt dizzy and near syncope with nausea and shortness of breath without vomiting, focal neuro deficit, headache, chest pain, fever and chills, lower extremity edema or pain. Patient states she had Lovenox injection while she was at Hospital that stopped one week ago. Review of Systems Review of Systems Constitutional: Denies fever or chills [] Eyes: Denies change in visual acuity, redness, or eye pain [] HENT: Denies nasal congestion or sore throat [] Respiratory: Denies cough , reports shortness of breath [] Cardiovascular: No additional information not addressed in HPI [] GI: Denies abdominal pain, vomiting, bloody stools or diarrhea [, reports nausea ] : Denies dysuria or hematuria [] Musculoskeletal: Denies back pain or joint pain [] Integument: Denies rash or skin lesions [] Neurologic: Denies headache, focal weakness or sensory changes, reports dizziness [] Endocrine: Denies polyuria or polydipsia [] All other systems were reviewed and found to be within normal limits, except as documented in this note. Allergies Allergies Allergies Coded Allergies Type Severity Reaction Last Updated Verified Penicillins Allergy Unknown 07/05/17 Yes Sulfa (Sulfonamide Antibiotics) Allergy Unknown 07/05/17 Yes diphenhydramine Allergy Unknown 07/05/17 Yes metronidazole Allergy Unknown 07/05/17 Yes nitrofurantoin Allergy Unknown 07/05/17 Yes strawberry Allergy Unknown 07/05/17 Yes Physical Exam Physical Exam Constitutional: Well developed, well nourished, mild distress, non-toxic appearance. [] HENT: Normocephalic, atraumatic Neck: Normal range of motion, no tenderness, supple, no stridor. [] Cardiovascular:Heart rate regular rhythm, no murmur [] Lungs & Thorax: Bilateral breath sounds clear to auscultation [] Abdomen: Bowel sounds normal, soft, no tenderness, no masses, no pulsatile masses. [] Skin: Warm, dry, no erythema, no rash. [] Back: No tenderness, no CVA tenderness. [] Extremities: No tenderness, no cyanosis, no clubbing, ROM intact, no edema. [] Neurologic: Alert and oriented X 3, normal motor function, normal sensory function, no focal deficits noted. [] Psychologic: Affect normal, judgement normal, mood normal. [] Current Patient Data Vital Signs Vital Signs Date Time Temp Pulse Resp B/P (MAP) Pulse Ox O2 Delivery O2 Flow Rate FiO2 09/08/17 16:56 84 18 104/52 (69) 98 Room Air 09/08/17 15:36 98.2 Lab Results Laboratory Tests Test 09/08/17 14:42 Urine Collection Type Unknown Urine Color Straw Urine Clarity Clear Urine pH 7.0 Urine Specific [place] <=1.005 Urine Protein Neg (NEG-TRACE) Urine Glucose (UA) Neg mg/dL (NEG) Urine Ketones (Stick) Neg mg/dL (NEG) Urine Blood Small (NEG) Urine Nitrite Neg (NEG) Urine Bilirubin Neg (NEG) Urine Urobilinogen Dipstick 0.2 mg/dL (0.2 mg/dL) Urine Leukocyte Esterase Trace (NEG) Urine RBC 0 /HPF (0-2) Urine WBC 1-4 /HPF (0-4) Urine Squamous Epithelial Cells Many /LPF Urine Bacteria Few /HPF (0-FEW) EKG EKG EKG interpreted by me. EKG at 1502 showed normal sinus rhythm at rate of 74, port R-wave progress in anteroseptal leads, no acute ST and T wave abnormality Radiology/Procedures Radiology/Procedures [] Course & Med Decision Making Course & Med Decision Making Pertinent Labs are pending. Patient care transferred to Dr. Martinez at 1800. PREETI Hobbs attending note Dr. Patrick Martinez. Care assumed by me at 1800. Patient stable. Labs unremarkable except d-dimer elevated. CTA of the chest will be done to definitively rule out PE in the setting of low pretest probability and a benign appearing patient with unremarkable vital signs. CTA unremarkable per radiology. Patient continues to be stable without clinical evidence of PE on my initial evaluation and upon reevaluation prior to discharge normal respiratory rate and pulse ox symmetry and no tachycardia. No further workup or treatment indicated at this time. Patient agrees with outpatient follow-up and strict return precautions given Dragon Disclaimer Dragon Disclaimer This electronic medical record was generated, in whole or in part, using a voice recognition dictation system. Departure Departure: Impression: Primary Impression: Dizziness Additional Impression: Orthostasis Disposition: 01 HOME, SELF-CARE Condition: GOOD Referrals: KESHIA QUARLES DO (PCP) Patient Instructions: Dizziness Additional Instructions: It is not clear what was causing your lightheadedness today. It is likely that some mild dehydration contributed to this. Be sure to take her thyroid medicine exactly as prescribed as failure to do so could result in symptoms similar to what you been experiencing. It is appropriate to have a follow-up with your physician tomorrow as an outpatient tonight rest and drink plenty of fluids. Be sure to follow up as discussed and return immediately for new severe worsening symptoms Problem Qualifiers NICOLE BARBOSA MD September 08, 2017 17:01 PATRICK MARTINEZ MD September 08, 2017 22:02
[2017-09-08 17:15] LABS: BASO # 0.1 x10^3/uL (0.0-0.2); BASO % 1 % (0-3); EOS # 0.3 x10^3/uL (0.0-0.7); EOS % 4 % (0-3); HEMATOCRIT 39.2 % (36.0-47.0); HEMOGLOBIN 13.2 g/dL (12.0-15.5); LYMPH # 2.1 x10^3/uL (1.0-4.8); LYMPH % 24 % (24-48); MEAN CORPUSCULAR HEMOGLOBIN 31 pg (25-35); MEAN CORPUSCULAR HGB CONC 34 g/dL (31-37); MEAN CORPUSCULAR VOLUME 92 fL (79-100); MONO # 0.9 x10^3/uL (0.0-1.1); MONO % 11 % (0-9); NEUT # 5.2 x10^3uL (1.8-7.7); NEUT % 61 % (31-73); PLATELET COUNT 231 x10^3/uL (140-400); RED BLOOD COUNT 4.28 x10^6/uL (3.50-5.40); RED CELL DISTRIBUTION WIDTH 13.6 % (11.5-14.5); WHITE BLOOD COUNT 8.5 x10^3/uL (4.0-11.0)
[2017-09-08] MEDS ORDERED: IV NORMAL SALINE 1,000ML 1,000 ML IV ONE (17:15)
[2017-09-08 18:09] LABS: ALBUMIN 4.2 g/dL (3.4-5.0); ALBUMIN/GLOBULIN RATIO 1.1 (1.0-1.7); CREATININE 0.8 mg/dL (0.6-1.0); GFR 83.7; MAGNESIUM 2.4 mg/dL (1.8-2.4); POTASSIUM 4.4 mmol/L (3.5-5.1); TOTAL BILIRUBIN 0.4 mg/dL (0.2-1.0)
[2017-09-08] MEDS ORDERED: IOHEXOL 300 MG/ML 75 ML VIAL. IV ONE (19:30)
[2017-09-08] MEDS ORDERED: CONTRAST GIVEN MC PRN (19:30)
--- NOTE | 2017-09-08 21:28 | RAD ---
INDICATION: Omni 300, 75ml IV. Shortness of air, elevated d-dimer, dizziness. Hx hysterectomy last week COMPARISON: None. TECHNIQUE: Axial CT images obtained through the chest. Intravenous contrast utilized. Angiogram 3D images processed per protocol. One or more of the following individualized dose reduction techniques were utilized for this examination: 1. Automated exposure control; 2. Adjustment of the mA and/or kV according to patient size; 3. Use of iterative reconstruction technique. FINDINGS: No evidence of pneumothorax. No definite focal airspace consolidation to suggest pneumonia. Partially visualized liver is low-attenuation. Can be seen with fatty infiltration. Thoracic aorta does not appear aneurysmal. Portion of ascending thoracic aorta obscured by motion. Scattered sclerotic foci which is most commonly from bone islands unless the patient has history of neoplasm. No central pulmonary embolus. Some limitation peripherally secondary to contrast bolus timing. IMPRESSION: 1. No central pulmonary embolus. Within the right lower lobe subsegmental there is a small amount of low density seen within one of the peripheral pulmonary arteries. The most likely cause is artifact unless there is a high pretest probability for pulmonary embolus. 2. No focal airspace consolidation to suggest pneumonia Electronically signed by: Rao Marie MD (09/08/2017 9:26 PM) [facility]
[2017-09-08 22:18] VITALS: BP 114/58
== END 2017-09-08 22:18 | disposition home or self-care (01) ==
LOC: ER 14:36
DX: I95.1 Orthostatic hypotension (principal); E03.9 Hypothyroidism, unspecified; F32.9 Major depressive disorder, single episode, unspecified; Z87.440 Personal history of urinary (tract) infections; Z90.710 Acquired absence of both cervix and uterus; Z88.0 Allergy status to penicillin; Z88.2 Allergy status to sulfonamides; Z88.8 Allergy status to other drugs, medicaments and biological substances; Z91.018 Allergy to other foods
CPT/HCPCS: 36415; 71275; 80053; 81001; 83690; 83735; 84484; 85025; 85379; 85610; 87086; 93005; 96360; 96361; 99285; Q9967; J7030

== ENCOUNTER 2017-12-17 09:01 | Emergency (ER) | payer OTHER ==
[~2017-12-17] VITALS: Ht 167.6 cm; Wt 83.5 kg
[~2017-12-17 09:01] MED LIST changes: +TRAZ-86 PO; -TRAZ-90 PO
[2017-12-17 09:21] VITALS: BP 128/77
[2017-12-17] MEDS ORDERED: ONDANSETRON PF 4 MG/2 ML VIAL. IV ONE (09:30)
[2017-12-17] MEDS ORDERED: IV NORMAL SALINE 1,000ML 1,000 ML IV ONE (09:30)
[2017-12-17] MEDS ORDERED: FAMOTIDINE 20 MG/2 ML VIAL IVP ONE (09:30)
[2017-12-17] MEDS ORDERED: KETOROLAC 30 MG/ML VIAL. IV ONE (09:30)
--- NOTE | 2017-12-17 09:41 | PHYS DOC ---
Past History Past Medical History: Depression, Gallstones, Hypothyroid, Ovarian Cyst, UTI, Other Additional Past Medical Histor: gastroparesis Past Surgical History: Appendectomy, Cholecystectomy, Hysterectomy, Tubal ligation, Other Smoking: Non-smoker Alcohol Use: Occasionally Drug Use: None Adult General Chief Complaint Chief Complaint: NAUSEA/VOMITING/DIARRHEA HPI HPI Patient is a 32-year-old female who presents to the emergency department complaining of nausea and abdominal pain. Patient states that approximately one week ago she started having the sensation that her stomach was very "full". She has been unable to maintain a normal diet and has lost 10 pounds in the past week she states. Patient states that last night she started having nausea and vomiting. Patient says that her abdominal pain is rated as 6/10 in severity. Patient took 8 mg of Zofran this morning at approximately 7:30. He states that walking around makes the pain worse and that nothing improves it. Patient says that she has been diagnosed with "ischemic" colitis in the past and sees a GI specialist. Denies fever/chills. Denies trauma. Review of Systems Review of Systems Constitutional: Endorses fever. Denies chills [] Eyes: Denies change in visual acuity, redness, or eye pain [] HENT: Denies nasal congestion or sore throat [] Respiratory: Denies cough or shortness of breath [] Cardiovascular: Denies chest pain and palpitations[] GI: Endorses abdominal pain, nausea, and vomiting. Denies bloody stools or diarrhea [] Musculoskeletal: Denies back pain or joint pain [] Neurologic: Endorses headache. Denies focal weakness or sensory changes [] Complete systems were reviewed and found to be within normal limits, except as documented in this note. Current Medications Current Medications Current Medications Medications (Trade) Dose Ordered Sig/Yehuda Start Time Stop Time Status Last Admin Dose Admin Famotidine (Pepcid Vial) 20 mg 1X ONCE 12/17/17 09:30 12/17/17 09:31 DC Ketorolac Tromethamine (Toradol) 30 mg 1X ONCE 12/17/17 09:30 12/17/17 09:31 DC Ondansetron HCl (Zofran) 4 mg 1X ONCE 12/17/17 09:30 8 09:31 DC Sodium Chloride 1,000 ml @ 1,000 mls/hr 1X ONCE 12/17/17 09:30 12/17/17 10:29 Allergies Allergies Allergies Coded Allergies Type Severity Reaction Last Updated Verified Penicillins Allergy Unknown 07/05/17 Yes Sulfa (Sulfonamide Antibiotics) Allergy Unknown 07/05/17 Yes diphenhydramine Allergy Unknown 07/05/17 Yes metronidazole Allergy Unknown 07/05/17 Yes nitrofurantoin Allergy Unknown 07/05/17 Yes strawberry Allergy Unknown 07/05/17 Yes Physical Exam Physical Exam Constitutional: Well developed, well nourished, no acute distress, non-toxic appearance. [] HENT: Normocephalic, atraumatic, oropharynx moist Eyes: PERRL, EOMI.[] Neck: Normal range of motion, no tenderness, supple, no meningeal signs Cardiovascular: Heart rate regular rhythm, no murmur [] Lungs & Thorax: Bilateral breath sounds clear to auscultation [] Abdomen: Tenderness to palpation in left upper quadrant. Bowel sounds normal, soft Skin: Warm, dry, no erythema, no rash. Healing incision site on abdomen where punch biopsy performed previously [] Back: No tenderness, no CVA tenderness. [] Extremities: No tenderness, ROM intact, no edema. [] Neurologic: Alert and oriented X 3, normal motor function, normal sensory function, no focal deficits noted. [] EKG EKG [] Radiology/Procedures Radiology/Procedures PROCEDURE: CT ABD PELV W/ORAL&IV CONTRAST CT of the abdomen and pelvis with contrast, 12/17/2017: HISTORY: Nausea, vomiting, upper abdominal pain Multidetector CT imaging was performed following oral and IV administration of contrast. The gallbladder is surgically absent. The liver is of lower than normal density in a slightly patchy pattern. The findings are compatible with hepatic steatosis, also evident on the 08/01/2017 exam. No hepatic mass is seen.. The pancreas is unremarkable. The spleen is of normal size. No renal or adrenal abnormality is detected. No abdominal or pelvic adenopathy is seen. The uterus is surgically absent. The bowel loops are not dilated. The appendix has been removed. No free fluid or free air is evident in the abdomen or pelvis. IMPRESSION: 1. No acute abdominal or pelvic abnormality is detected. 2. Hepatic steatosis. PQRS Compliance Statement: One or more of the following individualized dose reduction techniques were utilized for this examination: 1. Automated exposure control 2. Adjustment of the mA and/or kV according to patient size 3. Use of iterative reconstruction technique Electronically signed by: Min Choudhary MD (12/17/2017 12:59 PM) [facility] DICTATED AND SIGNED BY: MIN CHOUDHARY MD DATE: 12/17/17 9771 Course & Med Decision Making Course & Med Decision Making Pertinent Labs and Imaging studies reviewed. (See chart for details) Patient is a 32-year-old female who presents to the emergency department complaining of nausea and LUQ abdominal pain. Supportive measures provided. Labs and CT abd/pelvis with contrast were ordered and showed no acute processes. Lactic acid WNL. Patient stable for discharge with outpatient follow- up with PCP and GI specialist. Discussed findings and plan with patient who acknowledges understanding and agreement. Dragon Disclaimer Dragon Disclaimer This electronic medical record was generated, in whole or in part, using a voice recognition dictation system. Departure Departure: Impression: Primary Impression: Abdominal pain Disposition: HOME, SELF-CARE Condition: STABLE Referrals: KESHIA QUARLES DO (PCP) Patient Instructions: Abdominal Pain (Nonspecific) Scripts Ondansetron Hcl (ZOFRAN) 4 Mg Tablet 1 TAB PO Q8HRS for NAUSEA, #14 TAB Prov: MOE GUTIERREZ DO 12/17/17 Hydrocodone Bit/Acetaminophen (NORCO 5-325 TABLET) 1 Each Tablet 1 TAB PO Q6HRS for PAIN, #10 TAB Prov: MOE UGTIERREZ DO 12/17/17 Problem Qualifiers Primary Impression: Abdominal pain Abdominal location: left upper quadrant Qualified Codes: R10.12 - Left upper quadrant pain MOE GUTIERREZ DO Dec 17, 2017 09:41
[2017-12-17] MEDS ORDERED: IOHEXOL 240 MG/ML 50ML VIAL. PO ONE (10:15)
[2017-12-17] MEDS ORDERED: IOHEXOL 300 MG/ML 75 ML VIAL. IV ONE (10:15)
[2017-12-17 11:09] LABS: BASO # 0.1 x10^3/uL (0.0-0.2); BASO % 1 % (0-3); EOS # 0.1 x10^3/uL (0.0-0.7); EOS % 1 % (0-3); HEMATOCRIT 41.2 % (36.0-47.0); HEMOGLOBIN 14.2 g/dL (12.0-15.5); LYMPH # 2.2 x10^3/uL (1.0-4.8); LYMPH % 35 % (24-48); MEAN CORPUSCULAR HEMOGLOBIN 32 pg (25-35); MEAN CORPUSCULAR HGB CONC 35 g/dL (31-37); MEAN CORPUSCULAR VOLUME 94 fL (79-100); MONO # 0.6 x10^3/uL (0.0-1.1); MONO % 9 % (0-9); NEUT # 3.3 x10^3uL (1.8-7.7); NEUT % 53 % (31-73); PLATELET COUNT 289 x10^3/uL (140-400); RED BLOOD COUNT 4.38 x10^6/uL (3.50-5.40); RED CELL DISTRIBUTION WIDTH 12.2 % (11.5-14.5); WHITE BLOOD COUNT 6.2 x10^3/uL (4.0-11.0)
[2017-12-17 11:24] LABS: ALBUMIN 4.1 g/dL (3.4-5.0); CALCIUM 9.8 mg/dL (8.5-10.1); CREATININE 0.8 mg/dL (0.6-1.0); GFR 83.7; MAGNESIUM 2.5 mg/dL (1.8-2.4); POTASSIUM 4.4 mmol/L (3.5-5.1); TOTAL BILIRUBIN 0.3 mg/dL (0.2-1.0); TOTAL PROTEIN 8.2 g/dL (6.4-8.2)
--- NOTE | 2017-12-17 13:02 | RAD ---
CT of the abdomen and pelvis with contrast, 12/17/2017: HISTORY: Nausea, vomiting, upper abdominal pain Multidetector CT imaging was performed following oral and IV administration of contrast. The gallbladder is surgically absent. The liver is of lower than normal density in a slightly patchy pattern. The findings are compatible with hepatic steatosis, also evident on the 08/01/2017 exam. No hepatic mass is seen.. The pancreas is unremarkable. The spleen is of normal size. No renal or adrenal abnormality is detected. No abdominal or pelvic adenopathy is seen. The uterus is surgically absent. The bowel loops are not dilated. The appendix has been removed. No free fluid or free air is evident in the abdomen or pelvis. IMPRESSION: 1. No acute abdominal or pelvic abnormality is detected. 2. Hepatic steatosis. PQRS Compliance Statement: One or more of the following individualized dose reduction techniques were utilized for this examination: 1. Automated exposure control 2. Adjustment of the mA and/or kV according to patient size 3. Use of iterative reconstruction technique Electronically signed by: Min Choudhary MD (12/17/2017 12:59 PM) [facility]
[2017-12-17 13:44] LABS: BARBITURATES POS (NEG); BENZODIAZEPINES NEG (NEG); CANNABINOIDS NEG (NEG); COCAINE NEG (NEG); METHADONE NEG (NEG); OPIATES NEG (NEG); PHENCYCLIDINE NEG (NEG)
[2017-12-17 13:45] LABS: AMPHETAMINE/METHAMPHETAMINE NEG (NEG)
[2017-12-17 13:57] LABS: BACTERIA,URINE 0 /HPF (0-FEW); BILIRUBIN,URINE NEG (NEG); CLARITY,URINE CLEAR; COLOR,URINE YELLOW; GLUCOSE,URINE NEG (NEG); NITRITE,URINE NEG (NEG); RBC,URINE OCC /HPF (0-2); SQUAMOUS EPITHELIAL CELL,UR FEW /LPF; UROBILINOGEN,URINE 0.2 mg/dL (0.2 mg/dL); WBC,URINE OCC /HPF (0-4)
[2017-12-17] MEDS ORDERED: ONDA4TAB7 PO (14:20)
[2017-12-17] MEDS ORDERED: HYDR-971 PO (14:20)
== END 2017-12-17 14:27 | disposition home or self-care (01) ==
LOC: ER 09:01
DX: R10.12 Left upper quadrant pain (principal); R11.2 Nausea with vomiting, unspecified; R51 Headache; R50.9 Fever, unspecified; K76.0 Fatty (change of) liver, not elsewhere classified; E03.9 Hypothyroidism, unspecified; F32.9 Major depressive disorder, single episode, unspecified; Z87.440 Personal history of urinary (tract) infections; Z90.49 Acquired absence of other specified parts of digestive tract; Z90.89 Acquired absence of other organs; Z90.710 Acquired absence of both cervix and uterus; Z98.51 Tubal ligation status; Z88.0 Allergy status to penicillin; Z88.2 Allergy status to sulfonamides; Z88.8 Allergy status to other drugs, medicaments and biological substances; Z91.013 Allergy to seafood
CPT/HCPCS: 36415; 74177; 80053; 80307; 81001; 83605; 83690; 83735; 85025; 96361; 96374; 96375; 96376; 99285; J1885; J2405; J3010; Q9966; Q9967; S0028; G0479; J7030

== ENCOUNTER 2018-03-02 12:10 | Emergency (ER) | payer OTHER ==
[~2018-03-02] VITALS: Ht 167.6 cm; Wt 81.0 kg
[~2018-03-02 12:10] MED LIST changes: +BUPR100T7 PO; +DICY20TA3 PO; +FAMO-63 PO; +HYDR-971 PO; +ONDA4TAB7 PO
--- NOTE | 2018-03-02 12:25 | PHYS DOC ---
Past History Past Medical History: Asthma, Depression, Gallstones, Hypothyroid, Ovarian Cyst , UTI, Other Additional Past Medical Histor: gastroparesis Past Surgical History: Appendectomy, Cholecystectomy, Hysterectomy, Tubal ligation, Other Smoking: Non-smoker Alcohol Use: Occasionally Drug Use: None Adult General Chief Complaint Chief Complaint: ABDOMINAL PAIN HPI HPI Patient is a 32-year-old female who presents to the emergency department for evaluation. She states that for the past several days she has been having abdominal pain on and off. She states that she has a history of chronic constipation and recurrent abdominal pain, so she did not think much of it initially and she took some MiraLAX, followed by some magnesium Citrate, which ultimately help her have bowel movements. She was doing better, but then over the past 2 days the pain returned. She states she's had several episodes of vomiting, nonbloody. She reports having some blood-tinged stool over the past few days as well. She states the pain is diffuse in her abdomen. She denies any urinary symptoms, fevers, or chills. There are no alleviating, or exacerbating factors to the patient's symptoms. The patient has been seen in this emergency department several times over the past several months. She has had at least 4 CT scans of her abdomen and pelvis at this facility in the past year. Review of Systems Review of Systems Constitutional: Denies fever or chills [] Eyes: Denies change in visual acuity, redness, or eye pain [] HENT: Denies nasal congestion or sore throat [] Respiratory: Denies cough or shortness of breath [] Cardiovascular: The patient denies any shortness of breath, chest pain, palpitations, or orthopnea [] GI: No additional information not addressed in HPI [] : Denies dysuria or hematuria [] Musculoskeletal: Denies back pain or joint pain [] Integument: Denies rash or skin lesions [] Neurologic: Denies headache, focal weakness or sensory changes [] Endocrine: Denies polyuria or polydipsia [] All other systems were reviewed and found to be within normal limits, except as documented in this note. Allergies Allergies Allergies Coded Allergies Type Severity Reaction Last Updated Verified Penicillins Allergy Unknown 12/17/17 Yes Sulfa (Sulfonamide Antibiotics) Allergy Unknown 12/17/17 Yes diphenhydramine Allergy Unknown 12/17/17 Yes metronidazole Allergy Unknown 12/17/17 Yes nitrofurantoin Allergy Unknown 12/17/17 Yes strawberry Allergy Unknown 12/17/17 Yes Physical Exam Physical Exam PHYSICAL EXAM: CONSTITUTIONAL: Well developed, well nourished HEAD: normocephalic, atraumatic EENT: PERRL, EOMI. Conjunctivae normal color, sclerae non-icteric; moist mucous membranes. NECK: Supple, non-tender; no meningismus. LUNGS: Lungs CTA, breathing even and unlabored. Normal air movement. HEART: Regular rate and rhythm, no murmur CHEST: No deformity; non-tender ABDOMEN: The abdomen is soft, there is diffuse tenderness to palpation of the entire abdomen, most prominent in the left side of the abdomen, both mid and lower, without rebound or guarding. Normal bowel sounds are present. no masses or bruits. EXTREM: Normal ROM; no deformity, no calf tenderness. Normal pulses palpable in all extremities. There is no pedal edema. SKIN: No rash; no diaphoresis NEURO: Alert; normal speech and cognition; CN's grossly intact; strength grossly intact without focal deficit. BACK: No CVA TTP. PSYCHIATRIC: The patient does exhibit a mildly anxious affect. RECTAL EXAM: There is no significant amount of stool in the rectal vault. There is no gross blood. There are no hemorrhoids. There are no perianal masses. Current Patient Data Lab Results Laboratory Tests Test 03/02/18 12:29 03/02/18 12:54 03/02/18 13:30 White Blood Count 10.9 x10^3/uL Red Blood Count 4.07 x10^6/uL Hemoglobin 13.0 g/dL Hematocrit 38.2 % Mean Corpuscular Volume 94 fL Mean Corpuscular Hemoglobin 32 pg Mean Corpuscular Hemoglobin Concent 34 g/dL Red Cell Distribution Width 12.9 % Platelet Count 263 x10^3/uL Neutrophils (%) (Auto) 78 % Lymphocytes (%) (Auto) 15 % Monocytes (%) (Auto) 6 % Eosinophils (%) (Auto) 0 % Basophils (%) (Auto) 1 % Neutrophils # (Auto) 8.5 x10^3uL Lymphocytes # (Auto) 1.6 x10^3/uL Monocytes # (Auto) 0.6 x10^3/uL Eosinophils # (Auto) 0.0 x10^3/uL Basophils # (Auto) 0.1 x10^3/uL Sodium Level 138 mmol/L Potassium Level 3.9 mmol/L Chloride Level 106 mmol/L Carbon Dioxide Level 23 mmol/L Anion Gap 9 Blood Urea Nitrogen 14 mg/dL Creatinine 0.9 mg/dL Estimated GFR (Cockcroft-Gault) 73.0 BUN/Creatinine Ratio 16 Glucose Level 96 mg/dL Lactic Acid Level 1.1 mmol/L Calcium Level 8.8 mg/dL Total Bilirubin 0.3 mg/dL Aspartate Amino Transf (AST/SGOT) 18 U/L Alanine Aminotransferase (ALT/SGPT) 33 U/L Alkaline Phosphatase 74 U/L Total Protein 7.4 g/dL Albumin 3.8 g/dL Albumin/Globulin Ratio 1.1 Lipase 83 U/L Urine Collection Type Unknown Urine Color Yellow Urine Clarity Hazy Urine pH 7.0 Urine Specific [place] 1.015 Urine Protein Neg Urine Glucose (UA) Neg mg/dL Urine Ketones (Stick) Neg mg/dL Urine Blood Neg Urine Nitrite Neg Urine Bilirubin Neg Urine Urobilinogen Dipstick 0.2 mg/dL Urine Leukocyte Esterase Neg Urine RBC Occ /HPF Urine WBC Occ /HPF Urine Squamous Epithelial Cells Few /LPF Urine Bacteria 0 /HPF Current Medications Medications (Trade) Dose Ordered Sig/Yehuda Route PRN Reason Start Time Stop Time Status Last Admin Dose Admin Dicyclomine HCl (Bentyl) 20 mg 1X ONCE IM 03/02/18 12:30 03/02/18 12:31 DC 03/02/18 12:42 Multi-Ingredient Mouthwash/Gargle (Gi Cocktail) 20 ml 1X ONCE PO 03/02/18 12:30 03/02/18 12:31 DC 03/02/18 12:30 Sodium Chloride 1,000 ml @ 1,000 mls/hr Q1H IV 03/02/18 12:30 03/02/18 13:29 DC 03/02/18 12:43 EKG EKG [] Radiology/Procedures Radiology/Procedures [] Course & Med Decision Making Course & Med Decision Making Pertinent Labs and prior Imaging studies reviewed. (See chart for details) 2:00 PM: The patient's condition remains stable. She has a long-standing history of abdominal problems. She states she has had a full GI workup at [facility] in the past, without a clear etiology of her symptoms. I do not believe she warrants advanced imaging in the emergency department today. I discussed test results, the need for further outpatient follow-up, and return precautions in detail. It should be noted that although I performed a rectal exam on the patient, the lab stated that there was not sufficient stool quantity to perform a Hemoccult exam, although I stressed to the clinical lab technologist that the test should be performed anyways, as the specimen on the cart reflected the relatively empty contents of the patient's rectal vault. The oil field laborer states she was unable to perform the test. Dragon Disclaimer Dragon Disclaimer This electronic medical record was generated, in whole or in part, using a voice recognition dictation system. Departure Departure: Impression: Primary Impression: Chronic abdominal pain Disposition: 01 HOME, SELF-CARE Condition: STABLE Referrals: KESHIA QUARLES DO (PCP) Patient Instructions: Abdominal Pain Additional Instructions: Follow-up with Dr. Patrick Das, gastroenterology at [facility], call [phone] to schedule an appointment. Scripts Diclofenac Sodium (DICLOFENAC SODIUM) 50 Mg Tablet.dr 1 TAB PO TID, #20 TAB 0 Refills Prov: JAMES SALCIDO MD 03/02/18 JAMES SALCIDO MD Mar 02, 2018 12:25
[2018-03-02] MEDS ORDERED: DICYCLOMINE 20 MG/2 ML AMPUL. IM ONE (12:30)
[2018-03-02] MEDS ORDERED: LIDO:MAALOX 1:1 20 ML SINGLE DOSE. PO ONE (12:30)
[2018-03-02] MEDS ORDERED: IV NORMAL SALINE 1,000ML 1,000 ML IV SCH (12:30)
[2018-03-02 12:46] LABS: BASO # 0.1 x10^3/uL (0.0-0.2); BASO % 1 % (0-3); EOS % 0 % (0-3); HEMATOCRIT 38.2 % (36.0-47.0); LYMPH # 1.6 x10^3/uL (1.0-4.8); LYMPH % 15 % (24-48); MEAN CORPUSCULAR HEMOGLOBIN 32 pg (25-35); MEAN CORPUSCULAR HGB CONC 34 g/dL (31-37); MEAN CORPUSCULAR VOLUME 94 fL (79-100); MONO # 0.6 x10^3/uL (0.0-1.1); MONO % 6 % (0-9); NEUT # 8.5 x10^3uL (1.8-7.7); NEUT % 78 % (31-73); PLATELET COUNT 263 x10^3/uL (140-400); RED BLOOD COUNT 4.07 x10^6/uL (3.50-5.40); RED CELL DISTRIBUTION WIDTH 12.9 % (11.5-14.5); WHITE BLOOD COUNT 10.9 x10^3/uL (4.0-11.0)
[2018-03-02 12:57] VITALS: BP 122/74
[2018-03-02 13:20] LABS: ALBUMIN 3.8 g/dL (3.4-5.0); ALBUMIN/GLOBULIN RATIO 1.1 (1.0-1.7); CALCIUM 8.8 mg/dL (8.5-10.1); CREATININE 0.9 mg/dL (0.6-1.0); POTASSIUM 3.9 mmol/L (3.5-5.1); TOTAL BILIRUBIN 0.3 mg/dL (0.2-1.0); TOTAL PROTEIN 7.4 g/dL (6.4-8.2)
[2018-03-02 13:51] LABS: BILIRUBIN,URINE NEG (NEG); CLARITY,URINE HAZY; COLOR,URINE YELLOW; GLUCOSE,URINE NEG (NEG); NITRITE,URINE NEG (NEG); UROBILINOGEN,URINE 0.2 mg/dL (0.2 mg/dL)
[2018-03-02 13:52] LABS: BACTERIA,URINE 0 /HPF (0-FEW); RBC,URINE OCC /HPF (0-2); SQUAMOUS EPITHELIAL CELL,UR FEW /LPF; WBC,URINE OCC /HPF (0-4)
[2018-03-02] MEDS ORDERED: DICL50TA4 PO (14:07)
== END 2018-03-02 14:29 | disposition home or self-care (01) ==
LOC: ER 12:10
DX: G89.29 Other chronic pain (principal); R10.84 Generalized abdominal pain; R11.10 Vomiting, unspecified; K92.1 Melena; E03.9 Hypothyroidism, unspecified; Z87.440 Personal history of urinary (tract) infections; Z90.49 Acquired absence of other specified parts of digestive tract; Z90.89 Acquired absence of other organs; Z90.710 Acquired absence of both cervix and uterus; Z98.51 Tubal ligation status; Z88.0 Allergy status to penicillin; Z88.2 Allergy status to sulfonamides; Z88.8 Allergy status to other drugs, medicaments and biological substances; Z91.018 Allergy to other foods
CPT/HCPCS: 36415; 80053; 81001; 83605; 83690; 85025; 96360; 96372; 99284; J0500; J7030

== ENCOUNTER 2018-04-15 11:44 | Emergency (ER) | payer OTHER ==
[~2018-04-15] VITALS: Ht 167.6 cm; Wt 81.0 kg
[~2018-04-15 11:44] MED LIST changes: +DICL50TA4 PO; +HYDR-3165 PO; -HYDR-971 PO
--- NOTE | 2018-04-15 12:08 | PHYS DOC ---
Past History Past Medical History: Constipation, Hypothyroid Additional Past Medical Histor: gastroparesis Past Surgical History: Appendectomy, Cholecystectomy, Hysterectomy Smoking: Non-smoker Alcohol Use: Occasionally Drug Use: None Adult General Chief Complaint Chief Complaint: FLANK PAIN HPI HPI Patient is a 32 year old female who presents with dysuria and right flank pain. This started approximately 4 days ago and was initially controlled with over-the -counter Pyridium and [id number] anti-inflammatories. This is become worse over time. Patient denies any blood in the urine. Increased pain at the end of urination. No vaginal discharge. No fever. As noted above, the Azo and ibuprofen initially helped but no longer seem to do so. Pain is moderate in intensity. Not like her previous history of kidney stones. [] Review of Systems Review of Systems Constitutional: Denies fever or chills [] Eyes: Denies change in visual acuity, redness, or eye pain [] HENT: Denies nasal congestion or sore throat [] Respiratory: Denies cough or shortness of breath [] Cardiovascular: No chest pain or palpitations[] GI: Denies abdominal pain, nausea, vomiting, bloody stools or diarrhea [] : See history of present illness[] Musculoskeletal: Denies back pain or joint pain [] Integument: Denies rash or skin lesions [] Neurologic: Denies headache, focal weakness or sensory changes [] Endocrine: Denies polyuria or polydipsia [] All other systems were reviewed and found to be within normal limits, except as documented in this note. Allergies Allergies Allergies Coded Allergies Type Severity Reaction Last Updated Verified Penicillins Allergy Unknown 12/17/17 Yes Sulfa (Sulfonamide Antibiotics) Allergy Unknown 12/17/17 Yes diphenhydramine Allergy Unknown 12/17/17 Yes metronidazole Allergy Unknown 12/17/17 Yes nitrofurantoin Allergy Unknown 12/17/17 Yes strawberry Allergy Unknown 12/17/17 Yes Physical Exam Physical Exam Constitutional: Well developed, well nourished, no acute distress, non-toxic appearance. [] HENT: Normocephalic, atraumatic, bilateral external ears normal, oropharynx moist, no oral exudates, nose normal. [] Eyes: PERRLA, EOMI, conjunctiva normal, no discharge. [] Neck: Normal range of motion, no tenderness, supple, no stridor. [] Cardiovascular:Heart rate regular rhythm, no murmur [] Lungs & Thorax: Bilateral breath sounds clear to auscultation [] Abdomen: Bowel sounds normal, soft, no tenderness, no masses, no pulsatile masses. [] Skin: Warm, dry, no erythema, no rash. [] Back: No tenderness, mild right CVA tenderness. [] Extremities: No tenderness, no cyanosis, no clubbing, ROM intact, no edema. [] Neurologic: Alert and oriented X 3, normal motor function, normal sensory function, no focal deficits noted. [] Psychologic: Affect normal, judgement normal, mood normal. [] EKG EKG [] Radiology/Procedures Radiology/Procedures CT scan of the abdomen and pelvis Abdomen findings: Cholecystectomy. Lung bases and bones are unremarkable. Hypodensity of the liver could be fatty. Kidneys, adrenals, pancreas, spleen unremarkable. No nephroureterolithiasis or hydronephrosis or perinephric edema. Appendectomy. No obstruction or inflammatory changes in GI tract. Mild sigmoid diverticulosis. No abdominal fluid. Pelvis findings: No bladder calculi. Hysterectomy. Ovaries atrophic. No pelvic fluid. Bladder, rectum and bones are unremarkable. IMPRESSION: No acute process. No urinary calculi or hydronephrosis. Appendectomy.[] Course & Med Decision Making Course & Med Decision Making Pertinent Labs and Imaging studies reviewed. (See chart for details) ED course: Patient arrived, was placed in fast track initially. Tolerated exam well. After the return of the urinalysis showing no white cells or red cells further investigation was determined to be warranted so patient was transported to and ER suite had IV access established, and was transported to and from CT scan with any complications. She was given IV pain medicine. This did improve her pain. After return of the lab and CT findings, these were discussed with the patient who voiced understanding. All questions were answered. Patient was discharged in improved condition. Medical decision making: There does not appear to be any evidence of pyelonephritis, obstructing kidney stone, appendix and gallbladder have already been surgically removed. This does not appear to be PID or tubo-ovarian abscess since the patient has had previous hysterectomy. No evidence of acute intra- abdominal pathology. Given the dysuria will place patient on a short course of oral outpatient antibiotics and address the pain.[] Dragon Disclaimer Dragon Disclaimer This electronic medical record was generated, in whole or in part, using a voice recognition dictation system. Departure Departure: Impression: Primary Impression: Dysuria Disposition: 01 HOME, SELF-CARE Condition: GOOD Referrals: KESHIA QUARLES DO (PCP) Follow-up in 2 days Patient Instructions: Dysuria Additional Instructions: Follow-up with your primary care physician in 2 days. Drink plenty of fluids. Take the medication as prescribed. Return to the ER if worsening pain, fever, or any other concerns. Scripts Ciprofloxacin Hcl (CIPRO) 500 Mg Tablet 1 TAB PO BID for dysuria, #10 TAB Prov: JUAN MORFIN DO 04/15/18 Meloxicam (MELOXICAM) 7.5 Mg Tablet 7.5 MG PO DAILY for PAIN, #20 TAB Prov: JUAN MORFIN DO 04/15/18 JUAN MORFIN DO Apr 15, 2018 12:08
[2018-04-15 12:09] LABS: BACTERIA,URINE FEW /HPF (0-FEW); BILIRUBIN,URINE NEG (NEG); CLARITY,URINE HAZY; COLOR,URINE YELLOW; GLUCOSE,URINE NEG (NEG); NITRITE,URINE NEG (NEG); RBC,URINE 0 /HPF (0-2); SQUAMOUS EPITHELIAL CELL,UR MANY /LPF; UROBILINOGEN,URINE 0.2 mg/dL (0.2 mg/dL); WBC,URINE 0 /HPF (0-4)
[2018-04-15] MEDS ORDERED: KETOROLAC 15 MG/ML VIAL. IV ONE (12:30)
[2018-04-15] MEDS ORDERED: IV NORMAL SALINE 1,000ML 1,000 ML IV ONE (12:30)
[2018-04-15 12:43] LABS: BASO # 0.1 x10^3/uL (0.0-0.2); BASO % 1 % (0-3); EOS % 1 % (0-3); HEMATOCRIT 39.8 % (36.0-47.0); HEMOGLOBIN 13.7 g/dL (12.0-15.5); LYMPH # 2.1 x10^3/uL (1.0-4.8); LYMPH % 24 % (24-48); MEAN CORPUSCULAR HEMOGLOBIN 32 pg (25-35); MEAN CORPUSCULAR HGB CONC 34 g/dL (31-37); MEAN CORPUSCULAR VOLUME 93 fL (79-100); MONO # 0.6 x10^3/uL (0.0-1.1); MONO % 7 % (0-9); NEUT % 68 % (31-73); PLATELET COUNT 260 x10^3/uL (140-400); RED BLOOD COUNT 4.27 x10^6/uL (3.50-5.40); RED CELL DISTRIBUTION WIDTH 12.2 % (11.5-14.5); WHITE BLOOD COUNT 8.8 x10^3/uL (4.0-11.0)
[2018-04-15 12:57] LABS: ALBUMIN 4.2 g/dL (3.4-5.0); CALCIUM 9.8 mg/dL (8.5-10.1); CREATININE 0.8 mg/dL (0.6-1.0); GFR 83.7; POTASSIUM 4.1 mmol/L (3.5-5.1); TOTAL BILIRUBIN 0.4 mg/dL (0.2-1.0); TOTAL PROTEIN 8.6 g/dL (6.4-8.2)
--- NOTE | 2018-04-15 13:13 | RAD ---
CT abdomen and pelvis without contrast PQRS statement: CT scans at this facility use dose reduction including either automated exposure control, iterative reconstructions, and /or weight based radiation dosing via mA and kV modification when appropriate to reduce radiation dose to as low as reasonably achievable. HISTORY: Right flank pain, right lower quadrant pain, history of kidney stones. COMPARISON: CT abdomen and pelvis December 17, 2017. TECHNIQUE: Helical multiplanar reconstructed noncontrast CT imaging of the abdomen and pelvis was acquired. Abdomen findings: Cholecystectomy. Lung bases and bones are unremarkable. Hypodensity of the liver could be fatty. Kidneys, adrenals, pancreas, spleen unremarkable. No nephroureterolithiasis or hydronephrosis or perinephric edema. Appendectomy. No obstruction or inflammatory changes in GI tract. Mild sigmoid diverticulosis. No abdominal fluid. Pelvis findings: No bladder calculi. Hysterectomy. Ovaries atrophic. No pelvic fluid. Bladder, rectum and bones are unremarkable. IMPRESSION: No acute process. No urinary calculi or hydronephrosis. Appendectomy. Electronically signed by: Pedro Escobar MD (04/15/2018 1:09 PM) [facility]
[2018-04-15] MEDS ORDERED: CIPR500T94 PO (13:29)
[2018-04-15] MEDS ORDERED: MELO7.5T29 PO (13:29)
[2018-04-15 13:40] VITALS: BP 116/65
== END 2018-04-15 13:45 | disposition home or self-care (01) ==
LOC: ER 11:44
DX: R30.0 Dysuria (principal); R10.9 Unspecified abdominal pain; E03.9 Hypothyroidism, unspecified; Z90.89 Acquired absence of other organs; Z87.442 Personal history of urinary calculi; Z90.49 Acquired absence of other specified parts of digestive tract; Z90.710 Acquired absence of both cervix and uterus; Z88.0 Allergy status to penicillin; Z88.2 Allergy status to sulfonamides; Z88.8 Allergy status to other drugs, medicaments and biological substances; Z91.018 Allergy to other foods
CPT/HCPCS: 36415; 74176; 80053; 81001; 85025; 96374; 99284; J1885; 96361; J7030

== ENCOUNTER 2018-10-17 11:28 | Emergency (ER) | payer SELFPAY ==
[~2018-10-17] VITALS: Ht 167.6 cm; Wt 77.1 kg
[~2018-10-17 11:28] MED LIST changes: +CIPR500T94 PO; +MELO7.5T29 PO
[2018-10-17 11:30] VITALS: BP 102/58
--- NOTE | 2018-10-17 11:43 | PHYS DOC ---
Past History Past Medical History: Constipation, Fibromyalgia, Hypothyroid Additional Past Medical Histor: gastroparesis Past Surgical History: Appendectomy, Cholecystectomy, Hysterectomy Smoking: Non-smoker Alcohol Use: Occasionally Drug Use: None Adult General Chief Complaint Chief Complaint: OVERDOSE HPI HPI Patient is a 33-year-old female presents following a suicide attempt. Last night she had 2-1/2 bottles of wine and a "handful" of trazodone 50 mg tablets at 5 PM. She denies any other coingestants. She denies any nausea or vomiting. Denies suicidal ideation at this time. Denies any homicidal ideation. She does have a previous history of suicide attempts when she drinks. She reports attempting this because she did drink last night. She is normally sober due to previous alcohol issues.[] Review of Systems Review of Systems Constitutional: Denies fever or chills [] Eyes: Denies change in visual acuity, redness, or eye pain [] HENT: Denies nasal congestion or sore throat [] Respiratory: Denies cough or shortness of breath [] Cardiovascular: No chest pain or palpitations[] GI: Denies abdominal pain, nausea, vomiting, bloody stools or diarrhea [] : Denies dysuria or hematuria [] Musculoskeletal: Denies back pain or joint pain [] Integument: Denies rash or skin lesions [] Neurologic: Denies headache, focal weakness or sensory changes [] Endocrine: Denies polyuria or polydipsia [] All other systems were reviewed and found to be within normal limits, except as documented in this note. Allergies Allergies Allergies Coded Allergies Type Severity Reaction Last Updated Verified Penicillins Allergy Unknown 12/17/17 Yes Sulfa (Sulfonamide Antibiotics) Allergy Unknown 12/17/17 Yes diphenhydramine Allergy Unknown 12/17/17 Yes metronidazole Allergy Unknown 12/17/17 Yes nitrofurantoin Allergy Unknown 12/17/17 Yes strawberry Allergy Unknown 12/17/17 Yes Physical Exam Physical Exam Constitutional: Well developed, well nourished, no acute distress, non-toxic appearance. [] HENT: Normocephalic, atraumatic, bilateral external ears normal, oropharynx moist, no oral exudates, nose normal. [] Eyes: PERRLA, EOMI, conjunctiva normal, no discharge. [] Neck: Normal range of motion, no tenderness, supple, no stridor. [] Cardiovascular:Heart rate regular rhythm, no murmur [] Lungs & Thorax: Bilateral breath sounds clear to auscultation [] Abdomen: Bowel sounds normal, soft, no tenderness, no masses, no pulsatile masses. [] Skin: Warm, dry, no erythema, no rash. [] Back: No tenderness, no CVA tenderness. [] Extremities: No tenderness, no cyanosis, no clubbing, ROM intact, no edema. [] Neurologic: Alert and oriented X 3, normal motor function, normal sensory function, no focal deficits noted. [] Psychologic: Affect flat, mood depressed. [] EKG EKG EKG shows a sinus rhythm at 68 bpm, no ST elevation. Normal axis, normal QTC, no terminal 40 ms QRS prolongation in lead aVR. Interpreted by me at 1229.[] Radiology/Procedures Radiology/Procedures [] Course & Med Decision Making Course & Med Decision Making Pertinent Labs and Imaging studies reviewed. (See chart for details) ED course: Patient arrived, was placed in bed, and tolerated exam well. She was able to ambulate to and from the restroom without any significant difficulty. No significant ataxia was noted. Poison control was contacted. Given that this is approximately 18 hours after the ingestion, perform the usual medical clearance/overdose labs, obtained a twelve-lead EKG, and if those look good she should be medically clear for mental health evaluation. After the return of the normal laboratory testing, along with the normal EKG, she was referred to mental health for screening evaluation. She was screened by mental health who felt that she would benefit from inpatient admission for further mental health care. Dr. Braswell accepted the patient at [facility] for transfer. Medical decision making: Patient appears to be medically clear for mental health evaluation and treatment. There is no evidence of alcohol intoxication, salicylate nor acetaminophen overdose, nor any significant electrolyte abnormality.[] Dragon Disclaimer Dragon Disclaimer This electronic medical record was generated, in whole or in part, using a voice recognition dictation system. Departure Departure: Impression: Primary Impression: Overdose Additional Impressions: Suicide attempt Bipolar disorder Borderline personality disorder Disposition: 65 XFER TO PSYCH HOSP/UNIT Referrals: KESHIA QUARLES DO (PCP) Problem Qualifiers Primary Impression: Overdose Encounter type: initial encounter Injury intent: intentional self-harm Qualified Codes: T50.902A - Poisoning by unspecified drugs, medicaments and biological substances, intentional self-harm, initial encounter Additional Impressions: Bipolar disorder Active/Remission status: remission status unspecified Qualified Codes: F31.9 - Bipolar disorder, unspecified JUAN MORFIN DO Oct 17, 2018 11:43
[2018-10-17 12:04] LABS: BASO % 0 % (0-3); EOS % 0 % (0-3); HEMATOCRIT 38.7 % (36.0-47.0); LYMPH # 1.3 x10^3/uL (1.0-4.8); LYMPH % 17 % (24-48); MEAN CORPUSCULAR HEMOGLOBIN 32 pg (25-35); MEAN CORPUSCULAR HGB CONC 34 g/dL (31-37); MEAN CORPUSCULAR VOLUME 94 fL (79-100); MONO # 0.4 x10^3/uL (0.0-1.1); MONO % 5 % (0-9); NEUT # 6.2 x10^3uL (1.8-7.7); NEUT % 78 % (31-73); PLATELET COUNT 251 x10^3/uL (140-400); RED BLOOD COUNT 4.12 x10^6/uL (3.50-5.40); RED CELL DISTRIBUTION WIDTH 12.9 % (11.5-14.5); WHITE BLOOD COUNT 8.1 x10^3/uL (4.0-11.0)
[2018-10-17 12:10] LABS: BARBITURATES POS (NEG); BENZODIAZEPINES NEG (NEG); CANNABINOIDS NEG (NEG); COCAINE NEG (NEG); METHADONE NEG (NEG); OPIATES NEG (NEG); PHENCYCLIDINE NEG (NEG)
[2018-10-17 12:11] LABS: AMPHETAMINE/METHAMPHETAMINE NEG (NEG)
[2018-10-17 12:16] LABS: ALBUMIN 4.1 g/dL (3.4-5.0); CALCIUM 9.6 mg/dL (8.5-10.1); CREATININE 0.8 mg/dL (0.6-1.0); DIRECT BILIRUBIN 0.1 mg/dL (0.0-0.2); GFR 83.1; MAGNESIUM 2.2 mg/dL (1.8-2.4); POTASSIUM 3.8 mmol/L (3.5-5.1); TOTAL BILIRUBIN 0.3 mg/dL (0.2-1.0); TOTAL PROTEIN 7.8 g/dL (6.4-8.2)
[2018-10-17 12:18] LABS: ACETAMIN < 2 mcg/mL (10-30); ETHANOL < 10 mg/dL (0-10); SALIC 1.4 mg/dL (2.8-20.0)
[2018-10-17 12:21] LABS: BACTERIA,URINE FEW /HPF (0-FEW); BILIRUBIN,URINE NEG (NEG); CLARITY,URINE CLEAR; COLOR,URINE YELLOW; GLUCOSE,URINE NEG (NEG); NITRITE,URINE NEG (NEG); RBC,URINE OCC /HPF (0-2); SQUAMOUS EPITHELIAL CELL,UR MANY /LPF; UROBILINOGEN,URINE 0.2 mg/dL (0.2 mg/dL); WBC,URINE OCC /HPF (0-4)
--- NOTE | 2018-10-19 07:44 | EKG ---
[address] [address] Test Date: 2018-10-17 Test Time: 12:27:12 Pat Name: JOSE JAMES Department: Room: Gender: F [employer]: : 1985 Requested By: JUAN MORFIN Order Number: [id number] Reading MD: Measurements Intervals [place] Rate: 68 P: 46 RI: 156 QRS: 13 QRSD: 72 T: 22 QT: 434 QTc: 462 Interpretive Statements SINUS RHYTHM OTHERWISE NORMAL ECG RI6.01 No previous ECG available for comparison
== END 2018-10-17 19:30 ==
LOC: ER 11:28
DX: T43.212A Poisoning by selective serotonin and norepinephrine reuptake inhibitors, intentional self-harm, initial encounter (principal); T51.92XA Toxic effect of unspecified alcohol, intentional self-harm, initial encounter; F31.9 Bipolar disorder, unspecified; F60.3 Borderline personality disorder; M79.7 Fibromyalgia; E03.9 Hypothyroidism, unspecified; Z88.0 Allergy status to penicillin; Z88.2 Allergy status to sulfonamides; Z88.8 Allergy status to other drugs, medicaments and biological substances; Z91.018 Allergy to other foods; Y92.89 Other specified places as the place of occurrence of the external cause
CPT/HCPCS: 36415; 80048; 80076; 80307; 80329; 81001; 83735; 85025; 85610; 99285; G0480; 82003

== ENCOUNTER 2019-06-03 11:08 | Emergency (ER) | payer OTHER ==
[~2019-06-03] VITALS: Ht 167.6 cm; Wt 90.9 kg
[2019-06-03 11:08] VITALS: BP 147/88
[~2019-06-03 11:08] MED LIST changes: +TRAZ-125 PO; -TRAZ-86 PO
[2019-06-03] MEDS ORDERED: ONDANSETRON ODT 4 MG TAB.RAPDIS PO ONE (11:30)
[2019-06-03] MEDS ORDERED: FAMOTIDINE 20 MG TABLET PO ONE (11:30)
[2019-06-03] MEDS ORDERED: LIDO:MAALOX 1:1 20 ML SINGLE DOSE. PO ONE (11:30)
[2019-06-03 12:05] LABS: BASO # 0.1 x10^3/uL (0.0-0.2); BASO % 1 % (0-3); EOS # 0.1 x10^3/uL (0.0-0.7); EOS % 2 % (0-3); HEMATOCRIT 42.2 % (36.0-47.0); HEMOGLOBIN 14.1 g/dL (12.0-15.5); LYMPH # 1.7 x10^3/uL (1.0-4.8); LYMPH % 29 % (24-48); MEAN CORPUSCULAR HEMOGLOBIN 33 pg (25-35); MEAN CORPUSCULAR HGB CONC 33 g/dL (31-37); MEAN CORPUSCULAR VOLUME 98 fL (79-100); MONO # 0.4 x10^3/uL (0.0-1.1); MONO % 7 % (0-9); NEUT # 3.7 x10^3uL (1.8-7.7); NEUT % 61 % (31-73); PLATELET COUNT 248 x10^3/uL (140-400); RED BLOOD COUNT 4.31 x10^6/uL (3.50-5.40)
[2019-06-03 12:12] LABS: CALCIUM 8.9 mg/dL (8.5-10.1); CREATININE 0.8 mg/dL (0.6-1.0); GFR 83.1
[2019-06-03 12:17] LABS: FECAL OB PT NEGATIVE (NEG)
[2019-06-03 12:19] LABS: ALBUMIN 4.3 g/dL (3.4-5.0); TOTAL BILIRUBIN 0.3 mg/dL (0.2-1.0); TOTAL PROTEIN 8.5 g/dL (6.4-8.2)
--- NOTE | 2019-06-03 13:26 | PHYS DOC ---
Past History Past Medical History: Asthma, Constipation, Fibromyalgia, GERD, Hypothyroid Additional Past Medical Histor: gastroparesis Past Surgical History: Appendectomy, Cholecystectomy, Hysterectomy, Tubal ligation Smoking: Non-smoker Alcohol Use: Occasionally Drug Use: None Adult General Chief Complaint Chief Complaint: TARRY STOOL HPI HPI Patient is a 33-year-old female with history of GI bleed presents with left upper quadrant pain, described as sharp worse with palpation and movement and multiple episodes of dark stools. No fever chills or sweats. No chest pain, cough, shortness of breath. No history of GI bleed. [] Review of Systems Review of Systems Review symptoms as per history of present illness. All other review symptoms are negative. All other systems were reviewed and found to be within normal limits, except as documented in this note. Current Medications Current Medications Current Medications Medications (Trade) Dose Ordered Sig/Yehuda Start Time Stop Time Status Last Admin Dose Admin Famotidine (Pepcid) 20 mg 1X ONCE 06/03/19 11:30 06/03/19 11:33 DC 06/03/19 11:30 20 MG Multi-Ingredient Mouthwash/Gargle (Gi Cocktail) 20 ml 1X ONCE 06/03/19 11:30 06/03/19 11:33 DC 06/03/19 11:30 20 ML Ondansetron HCl (Zofran Odt) 4 mg 1X ONCE 06/03/19 11:30 06/03/19 11:33 DC 06/03/19 11:30 4 MG Allergies Allergies Allergies Coded Allergies Type Severity Reaction Last Updated Verified Penicillins Allergy Unknown 12/17/17 Yes Sulfa (Sulfonamide Antibiotics) Allergy Unknown 12/17/17 Yes diphenhydramine Allergy Unknown 12/17/17 Yes metronidazole Allergy Unknown 12/17/17 Yes nitrofurantoin Allergy Unknown 12/17/17 Yes strawberry Allergy Unknown 12/17/17 Yes Physical Exam Physical Exam Constitutional: Well developed, well nourished, no acute distress, non-toxic appearance. [] HENT: Normocephalic, atraumatic, bilateral external ears normal, oropharynx moist, nose normal. [] Eyes: PERRLA, EOMI, conjunctiva normal, no discharge. [] Neck: Normal range of motion, no tenderness, supple, no stridor. [] Cardiovascular:Heart rate regular rhythm, no murmur [] Lungs & Thorax: Bilateral breath sounds clear to auscultation [] Abdomen: Bowel sounds normal, soft, upper quadrant pain, minimal tenderness on exam. [] Skin: Warm, dry, no erythema, no rash. [] Back: No tenderness, no CVA tenderness. [] Extremities: No tendernes. [] Neurologic: Alert and oriented X 3, normal motor function, normal sensory function, no focal deficits noted. [] Psychologic: Affect normal, judgement normal, mood normal. [] Current Patient Data Vital Signs Vital Signs Date Time Temp Pulse Resp B/P (MAP) Pulse Ox O2 Delivery O2 Flow Rate FiO2 06/03/19 11:08 97.7 107 20 147/88 (107) 99 Room Air Lab Results Laboratory Tests Test 06/03/19 11:41 06/03/19 11:50 White Blood Count 6.0 x10^3/uL (4.0-11.0) Red Blood Count 4.31 x10^6/uL (3.50-5.40) Hemoglobin 14.1 g/dL (12.0-15.5) Hematocrit 42.2 % (36.0-47.0) Mean Corpuscular Volume 98 fL (79-100) Mean Corpuscular Hemoglobin 33 pg (25-35) Mean Corpuscular Hemoglobin Concent 33 g/dL (31-37) Red Cell Distribution Width 13.0 % (11.5-14.5) Platelet Count 248 x10^3/uL (140-400) Neutrophils (%) (Auto) 61 % (31-73) Lymphocytes (%) (Auto) 29 % (24-48) Monocytes (%) (Auto) 7 % (0-9) Eosinophils (%) (Auto) 2 % (0-3) Basophils (%) (Auto) 1 % (0-3) Neutrophils # (Auto) 3.7 x10^3uL (1.8-7.7) Lymphocytes # (Auto) 1.7 x10^3/uL (1.0-4.8) Monocytes # (Auto) 0.4 x10^3/uL (0.0-1.1) Eosinophils # (Auto) 0.1 x10^3/uL (0.0-0.7) Basophils # (Auto) 0.1 x10^3/uL (0.0-0.2) Sodium Level 140 mmol/L (136-145) Potassium Level 4.0 mmol/L (3.5-5.1) Chloride Level 103 mmol/L (98-107) Carbon Dioxide Level 27 mmol/L (21-32) Anion Gap 10 (6-14) Blood Urea Nitrogen 12 mg/dL (7-20) Creatinine 0.8 mg/dL (0.6-1.0) Estimated GFR (Cockcroft-Gault) 83.1 BUN/Creatinine Ratio 15 (6-20) Glucose Level 97 mg/dL (70-99) Calcium Level 8.9 mg/dL (8.5-10.1) Total Bilirubin 0.3 mg/dL (0.2-1.0) Aspartate Amino Transferase (AST) 97 U/L (15-37) H Alanine Aminotransferase (ALT) 131 U/L (14-59) H Alkaline Phosphatase 90 U/L (46-116) Total Protein 8.5 g/dL (6.4-8.2) H Albumin 4.3 g/dL (3.4-5.0) Albumin/Globulin Ratio 1.0 (1.0-1.7) Stool Occult Blood Negative (NEG) EKG EKG [] Radiology/Procedures Radiology/Procedures [] Course & Med Decision Making Course & Med Decision Making Pertinent Labs and Imaging studies reviewed. (See chart for details) [Work performed and reassuring. Abdomen soft nonsurgical on reevaluation. Pepcid, Zofran and GI cocktail. Suspect pain related to gastroparesis. Recommend supportive care with close PCP follow-up. Courtesy work note provided. Return precautions reviewed.] Dragon Disclaimer Dragon Disclaimer This electronic medical record was generated, in whole or in part, using a voice recognition dictation system. Departure Departure: Impression: Primary Impression: Abdominal pain Disposition: HOME, SELF-CARE Condition: STABLE Patient Instructions: Abdominal Pain, [id number] Additional Instructions: Please new home medications and take Tylenol as needed for pain. SAMANTHA MARR DO Jun 03, 2019 13:26
== END 2019-06-03 12:57 | disposition home or self-care (01) ==
LOC: ER 11:08
DX: R10.12 Left upper quadrant pain (principal); K92.1 Melena; J45.909 Unspecified asthma, uncomplicated; M79.7 Fibromyalgia; K21.9 Gastro-esophageal reflux disease without esophagitis; E03.9 Hypothyroidism, unspecified; Z90.89 Acquired absence of other organs; Z90.49 Acquired absence of other specified parts of digestive tract; Z90.710 Acquired absence of both cervix and uterus; Z98.51 Tubal ligation status; Z88.0 Allergy status to penicillin; Z88.1 Allergy status to other antibiotic agents; Z88.8 Allergy status to other drugs, medicaments and biological substances; Z91.018 Allergy to other foods
CPT/HCPCS: 36415; 80053; 82274; 85025; 99284; Q0162

== ENCOUNTER 2019-12-23 08:58 | Emergency (ER) | payer OTHER ==
[~2019-12-23] VITALS: Ht 167.6 cm; Wt 90.9 kg
[2019-12-23 09:00] VITALS: BP 150/106
[2019-12-23] MEDS ORDERED: IV NORMAL SALINE 1,000ML 1,000 ML IV SCH (09:08)
[2019-12-23] MEDS ORDERED: ONDANSETRON PF 4 MG/2 ML VIAL. IVP ONE (09:15)
[2019-12-23] MEDS ORDERED: FAMOTIDINE 20 MG/2 ML VIAL IVP ONE (09:15)
--- NOTE | 2019-12-23 09:16 | PHYS DOC ---
Past History Past Medical History: Asthma, Bipolar, Constipation, Fibromyalgia, GERD, Hypothyroid, IBS Additional Past Medical Histor: gastroparesis Past Surgical History: Appendectomy, Cholecystectomy, Hysterectomy, Tubal ligation Smoking: Non-smoker Alcohol Use: Occasionally Drug Use: None General Adult EDM: Chief Complaint: NAUSEA/VOMITING/DIARRHEA HPI: HPI: Patient is a 34 year old female who presents for evaluation of moderate upper abdominal pain as well as nausea and vomiting. She had some streaks of blood in the vomit this morning. Patient has a longstanding history of IBS as well as gastroparesis. She has been having acid reflux symptoms for close to 2 weeks. Furthermore she is had some recent loose stools. Patient denies any obvious black, bloody or tarry stools. Patient is in mild to moderate distress on arrival. She did have her self to the hospital Review of Systems: Review of Systems: Constitutional: Denies fever or chills Eyes: Denies change in visual acuity HENT: Denies nasal congestion or sore throat Respiratory: Denies cough or shortness of breath Cardiovascular: Denies chest pain or edema GI: moderate upper abdominal pain with nausea, vomiting, no bloody stools has chronic loose stools : Denies dysuria Musculoskeletal: Denies back pain or joint pain Integument: Denies rash Neurologic: Denies headache, focal weakness or sensory changes Endocrine: Denies polyuria or polydipsia Lymphatic: Denies swollen glands Psychiatric: Denies depression has anxiety Heart Score: Risk Factors: Risk Factors: DM, Current or recent (<one month) smoker, HTN, HLP, family history of CAD, obesity. Risk Scores: Score 0 - 3: 2.5% MACE over next 6 weeks - Discharge Home Score 4 - 6: 20.3% MACE over next 6 weeks - Admit for Clinical Observation Score 7 - 10: 72.7% MACE over next 6 weeks - Early Invasive Strategies Current Medications: Current Meds: Current Medications Medications (Trade) Dose Ordered Sig/Yehuda Start Time Stop Time Status Last Admin Dose Admin Famotidine (Pepcid Vial) 20 mg 1X ONCE 12/23/19 09:15 12/23/19 09:16 Ondansetron HCl (Zofran) 4 mg 1X ONCE 12/23/19 09:15 12/23/19 09:16 Sodium Chloride 1,000 ml @ 1,000 mls/hr Q1H 12/23/19 09:08 12/23/19 10:07 Allergies: Allergies: Allergies Coded Allergies Type Severity Reaction Last Updated Verified Penicillins Allergy Unknown 12/17/17 Yes Sulfa (Sulfonamide Antibiotics) Allergy Unknown 12/17/17 Yes diphenhydramine Allergy Unknown 12/17/17 Yes metronidazole Allergy Unknown 12/17/17 Yes nitrofurantoin Allergy Unknown 12/17/17 Yes strawberry Allergy Unknown 12/17/17 Yes Physical Exam: PE: Constitutional: Well developed, well nourished, mild acute distress, non-toxic appearance. [] HENT: Normocephalic, atraumatic, bilateral external ears normal, oropharynx moist, no oral exudates, nose normal. [] Eyes: PERRL, EOMI, conjunctiva normal, no discharge. [] Neck: Normal range of motion, no tenderness, supple. [] Cardiovascular:Heart rate regular rhythm, no murmur [] Lungs & Thorax: Bilateral breath sounds clear to auscultation [] Abdomen: Bowel sounds normal, soft, moderate upper abdominal tenderness, no masses [] Skin: Warm, dry, no erythema, no rash. [] Back: No tenderness. [] Extremities: No tenderness, no cyanosis, ROM intact, no edema. [] Neurologic: Alert and oriented X 3, normal motor function, normal sensory function, no focal deficits noted. [] Psychologic: Affect normal, judgement normal, mood mild anxious. [] Current Patient Data: Labs: Laboratory Tests Test 12/23/19 09:13 12/23/19 09:26 Urine Collection Type Unknown Urine Color Yellow Urine Clarity Hazy Urine pH 6.5 Urine Specific [place] 1.025 Urine Protein Neg Urine Glucose (UA) Neg mg/dL Urine Ketones (Stick) Neg mg/dL Urine Blood Neg Urine Nitrite Neg Urine Bilirubin Neg Urine Urobilinogen Dipstick 0.2 mg/dL Urine Leukocyte Esterase Neg Urine RBC 3-5 /HPF Urine WBC 1-4 /HPF Urine Squamous Epithelial Cells Many /LPF Urine Bacteria Mod /HPF Urine Mucus Mod /LPF Urine Test Negative White Blood Count 7.9 x10^3/uL Red Blood Count 4.25 x10^6/uL Hemoglobin 14.1 g/dL Hematocrit 42.2 % Mean Corpuscular Volume 99 fL Mean Corpuscular Hemoglobin 33 pg Mean Corpuscular Hemoglobin Concent 34 g/dL Red Cell Distribution Width 12.8 % Platelet Count 222 x10^3/uL Neutrophils (%) (Auto) 67 % Lymphocytes (%) (Auto) 21 % Monocytes (%) (Auto) 8 % Eosinophils (%) (Auto) 3 % Basophils (%) (Auto) 1 % Neutrophils # (Auto) 5.3 x10^3uL Lymphocytes # (Auto) 1.7 x10^3/uL Monocytes # (Auto) 0.6 x10^3/uL Eosinophils # (Auto) 0.2 x10^3/uL Basophils # (Auto) 0.1 x10^3/uL Sodium Level 138 mmol/L Potassium Level 4.1 mmol/L Chloride Level 101 mmol/L Carbon Dioxide Level 26 mmol/L Anion Gap 11 Blood Urea Nitrogen 10 mg/dL Creatinine 0.9 mg/dL Estimated GFR (Cockcroft-Gault) 72.1 BUN/Creatinine Ratio 11 Glucose Level 97 mg/dL Calcium Level 9.4 mg/dL Total Bilirubin 0.3 mg/dL Aspartate Amino Transf (AST/SGOT) 101 U/L Alanine Aminotransferase (ALT/SGPT) 133 U/L Alkaline Phosphatase 90 U/L Troponin I Quantitative < 0.017 ng/mL Total Protein 8.5 g/dL Albumin 4.3 g/dL Albumin/Globulin Ratio 1.0 Lipase 58 U/L Current Medications Medications (Trade) Dose Ordered Sig/Yehuda Route PRN Reason Start Time Stop Time Status Last Admin Dose Admin Sodium Chloride 1,000 ml @ 1,000 mls/hr Q1H IV 12/23/19 09:08 12/23/19 10:07 DC 12/23/19 09:30 Ondansetron HCl (Zofran) 4 mg 1X ONCE IVP 12/23/19 09:15 12/23/19 09:16 DC 12/23/19 09:30 Famotidine (Pepcid Vial) 20 mg 1X ONCE IVP 12/23/19 09:15 12/23/19 09:16 DC 12/23/19 09:30 Iohexol (Omnipaque 300 Mg/ml) 75 ml 1X ONCE IV 12/23/19 10:30 12/23/19 10:31 DC 12/23/19 10:43 EKG: EKG: Normal sinus rhythm, rate 91, leftward axis, otherwise unremarkable EKG, not STEMI [] Radiology/Procedures: Radiology/Procedures: [address] [address] IMAGING REPORT Signed PATIENT: JOSE LIGHT ACCOUNT: [id number] : 1985 LOCATION: ER AGE: 34 SEX: F EXAM STATUS: REG ER ORD. PHYSICIAN: LETTY FONG DO REASON: chest pressure PROCEDURE: CHEST AP ONLY Examination: CHEST AP ONLY History: chest pressure Comparison: 09/08/2017 and CTA of the chest. Findings: AP portable upright frontal view of the chest was obtained. The cardiomediastinal silhouette is normal. Lungs are clear. There is no pneumothorax. No pleural effusion is appreciated. No acute bone abnormality. IMPRESSION: No acute cardiopulmonary process. Electronically signed by: Preet Zayas MD (12/23/2019 9:50 AM) [id number] DICTATED AND SIGNED BY: PREET ZAYAS MD DATE: 12/23/19 0950 CC: PCP,NO; LETTY FONG DO ~ [] Impressions: [address] [address] IMAGING REPORT Signed PATIENT: JOSE LIGHT ACCOUNT: [id number] : 1985 LOCATION: ER AGE: 34 SEX: F EXAM STATUS: REG ER ORD. PHYSICIAN: LETTY FONG DO REASON: severe epigastric pain PROCEDURE: CT ABD PELV W/ IV CONTRST ONLY CT abdomen and pelvis with contrast: Reason for examination: Severe epigastric abdominal pain. Comparison is made to previous study dated 04/15/2018. Helical images were obtained through the abdomen pelvis with intravenous administration of 75 cc Omnipaque 300. Reconstruction was performed in sagittal and coronal planes. Exposure: One or more of the following individualized dose reduction techniques were utilized for this examination: 1. Automated exposure control 2. Adjustment of the mA and/or kV according to patient size 3. Use of iterative reconstruction technique. The lung bases are clear. The heart size is normal with no pericardial effusion. Liver shows diffuse fatty infiltration without a focal lesion. No abnormality seen at the spleen, adrenal glands or pancreas. The gallbladder surgically absent. The abdominal aorta and inferior vena cava show no acute abnormalities. There are a few diverticuli but no diverticulitis or colitis. The appendix is surgically absent. The small intestinal tract shows no abnormal dilatation, wall thickening or evidence of obstruction. The kidneys show no renal masses, renal calculi, hydronephrosis or evidence of obstructive uropathy. No abnormality seen at the bladder. Left ovary is present and appears contained a 2.2 cm cyst. The uterus and right ovary appears be surgically absent. No free fluid or free air is seen through the abdomen or pelvis. No acute bony abnormalities are seen. IMPRESSION: Diffuse fatty infiltration of the liver without a focal lesion. 2.2 cm cyst in the left ovary. Electronically signed by: Jennifer Fowler MD (12/23/2019 11:11 AM) [facility] DICTATED AND SIGNED BY: JENNIFER FOWLER MD DATE: 12/23/19 1111 CC: PCP,BOB; LETTY FONG DO ~ Course & Med Decision Making: Course & Med Decision Making Pertinent Labs and Imaging studies reviewed. (See chart for details) [] Dragon Disclaimer: [email or web address] Disclaimer: This electronic medical record was generated, in whole or in part, using a voice recognition dictation system. 1017 stable, CT scan abdomen pelvis with IV contrast ordered for further assessment. Labs showed elevated liver enzymes but were otherwise unremarkable. Patient has had a hysterectomy. 1120 stable, feeling better at this time. CT scan abdomen pelvis shows no acute findings but did note fatty liver changes and diverticulosis. 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 Prescription for Zofran given. Patient is already on acid reducing medication Departure Departure: Impression: Primary Impression: Upper abdominal pain Additional Impressions: Nausea History of gastroesophageal reflux (GERD) Gastritis Disposition: HOME/RESIDENCE PRIOR TO ADM Condition: STABLE Referrals: PCP,BOB (PCP) Patient Instructions: Abdominal Pain (Nonspecific), Gastritis, Adult Additional Instructions: [place] diet, no spicy foods, call and see your plumber maintenance right away and follow up, return if worsen Scripts Ondansetron Hcl (ZOFRAN) 4 Mg Tablet 1 TAB PO PRN Q6HRS PRN for NAUSEA, #8 TAB Prov: LETTY FONG DO 12/23/19 Justification of Admission: Justification of Admission: Justification of Admission Dx: N/A LETTY FONG DO Dec 23, 2019 09:16
--- NOTE | 2019-12-23 09:31 | EKG ---
[address] [address] Test Date: 2019-12-23 Test Time: 09:18:09 Pat Name: JOSE LIGHT Department: Room: Gender: F Venue Attendant: : 1985 Requested By: LETTY FONG Order Number: [id number] Reading MD: Measurements Intervals [place] Rate: 91 P: 66 DC: 154 QRS: 10 QRSD: 74 T: 20 QT: 358 QTc: 442 Interpretive Statements SINUS RHYTHM NORMAL ECG RI6.02 No previous ECG available for comparison
[2019-12-23 09:48] LABS: BASO # 0.1 x10^3/uL (0.0-0.2); BASO % 1 % (0-3); EOS # 0.2 x10^3/uL (0.0-0.7); EOS % 3 % (0-3); HEMATOCRIT 42.2 % (36.0-47.0); HEMOGLOBIN 14.1 g/dL (12.0-15.5); LYMPH # 1.7 x10^3/uL (1.0-4.8); LYMPH % 21 % (24-48); MEAN CORPUSCULAR HEMOGLOBIN 33 pg (25-35); MEAN CORPUSCULAR HGB CONC 34 g/dL (31-37); MEAN CORPUSCULAR VOLUME 99 fL (79-100); MONO # 0.6 x10^3/uL (0.0-1.1); MONO % 8 % (0-9); NEUT # 5.3 x10^3uL (1.8-7.7); NEUT % 67 % (31-73); PLATELET COUNT 222 x10^3/uL (140-400); RED BLOOD COUNT 4.25 x10^6/uL (3.50-5.40); RED CELL DISTRIBUTION WIDTH 12.8 % (11.5-14.5); WHITE BLOOD COUNT 7.9 x10^3/uL (4.0-11.0)
--- NOTE | 2019-12-23 09:53 | RAD ---
Examination: CHEST AP ONLY History: chest pressure Comparison: 09/08/2017 and CTA of the chest. Findings: AP portable upright frontal view of the chest was obtained. The cardiomediastinal silhouette is normal. Lungs are clear. There is no pneumothorax. No pleural effusion is appreciated. No acute bone abnormality. IMPRESSION: No acute cardiopulmonary process. Electronically signed by: Preet Green MD (12/23/2019 9:50 AM) [id number]
[2019-12-23 09:56] LABS: CALCIUM 9.4 mg/dL (8.5-10.1); CREATININE 0.9 mg/dL (0.6-1.0); GFR 72.1; POTASSIUM 4.1 mmol/L (3.5-5.1)
[2019-12-23 10:02] LABS: ALBUMIN 4.3 g/dL (3.4-5.0); TOTAL BILIRUBIN 0.3 mg/dL (0.2-1.0); TOTAL PROTEIN 8.5 g/dL (6.4-8.2)
[2019-12-23] MEDS ORDERED: IOHEXOL 300 MG/ML 75 ML VIAL. IV ONE (10:30)
[2019-12-23 10:36] LABS: BACTERIA,URINE MOD /HPF (0-FEW); BILIRUBIN,URINE NEG (NEG); CLARITY,URINE HAZY; COLOR,URINE YELLOW; GLUCOSE,URINE NEG (NEG); NITRITE,URINE NEG (NEG); SQUAMOUS EPITHELIAL CELL,UR MANY /LPF; UROBILINOGEN,URINE 0.2 mg/dL (0.2 mg/dL)
[2019-12-23 10:38] LABS: U PREG PATIENT NEGATIVE (NEG)
--- NOTE | 2019-12-23 11:14 | RAD ---
CT abdomen and pelvis with contrast: Reason for examination: Severe epigastric abdominal pain. Comparison is made to previous study dated 04/15/2018. Helical images were obtained through the abdomen pelvis with intravenous administration of 75 cc Omnipaque 300. Reconstruction was performed in sagittal and coronal planes. Exposure: One or more of the following individualized dose reduction techniques were utilized for this examination: 1. Automated exposure control 2. Adjustment of the mA and/or kV according to patient size 3. Use of iterative reconstruction technique. The lung bases are clear. The heart size is normal with no pericardial effusion. Liver shows diffuse fatty infiltration without a focal lesion. No abnormality seen at the spleen, adrenal glands or pancreas. The gallbladder surgically absent. The abdominal aorta and inferior vena cava show no acute abnormalities. There are a few diverticuli but no diverticulitis or colitis. The appendix is surgically absent. The small intestinal tract shows no abnormal dilatation, wall thickening or evidence of obstruction. The kidneys show no renal masses, renal calculi, hydronephrosis or evidence of obstructive uropathy. No abnormality seen at the bladder. Left ovary is present and appears contained a 2.2 cm cyst. The uterus and right ovary appears be surgically absent. No free fluid or free air is seen through the abdomen or pelvis. No acute bony abnormalities are seen. IMPRESSION: Diffuse fatty infiltration of the liver without a focal lesion. 2.2 cm cyst in the left ovary. Electronically signed by: Mary Heller MD (12/23/2019 11:11 AM) [id number]
[2019-12-23] MEDS ORDERED: ONDA4TAB7 PO (11:23)
== END 2019-12-23 11:34 | disposition home or self-care (01) ==
LOC: ER 08:58
DX: K29.70 Gastritis, unspecified, without bleeding (principal); K21.9 Gastro-esophageal reflux disease without esophagitis; J45.909 Unspecified asthma, uncomplicated; M79.7 Fibromyalgia; E03.9 Hypothyroidism, unspecified; K58.9 Irritable bowel syndrome, unspecified; Z90.49 Acquired absence of other specified parts of digestive tract; Z90.89 Acquired absence of other organs; Z90.710 Acquired absence of both cervix and uterus; Z98.51 Tubal ligation status; Z88.2 Allergy status to sulfonamides; Z88.0 Allergy status to penicillin; Z88.8 Allergy status to other drugs, medicaments and biological substances; Z91.018 Allergy to other foods
CPT/HCPCS: 36415; 71045; 74177; 80053; 81001; 81025; 83690; 84484; 85025; 87086; 93005; 96361; 96374; 96375; 99285; J2405; J3490; J7030; Q9967